=== PATIENT | female | born 1970 | race Caucasian/White ===

== ENCOUNTER 2019-12-13 13:52 | Outpatient (CLI) | payer OTHER, SELFPAY ==
--- NOTE | ~2019-12-13 | MM_ITS ---
EXAMINATION: MM screening shandra BI w neel HISTORY: Screening mammogram TECHNIQUE: Craniocaudal and mediolateral oblique 3-D tomosynthesis images were obtained and synthetic 2-D images were generated. CAD analysis was submitted and interpreted. COMPARISON: Comparison to multiple prior studies sequentially, with oldest reviewed study dated 02/2015. BREAST PARENCHYMAL COMPOSITION: There are scattered areas of fibroglandular density. FINDINGS: There is no evidence of suspicious mass, calcification, or architectural distortion to sugg est malignancy in either breast. There has been no suspicious interval change. IMPRESSION: 1. No mammographic evidence of malignancy. 2. Recommend routine screening mammography in one year. BI-RADS Category 1: Negative Reviewed, dictated and finalized at location A.
== END 2019-12-13 13:53 | disposition home or self-care (01) ==
LOC: ANHIMG 13:55
PROVIDERS: PCP Family Medicine; Visit Provider Obstetrics & Gynecology
DX: Z12.31 Encounter for screening mammogram for malignant neoplasm of breast (principal)
CPT/HCPCS: 77063; 77067

== ENCOUNTER 2020-06-16 08:15 | Outpatient (CLI) | payer OTHER, SELFPAY ==
[2020-06-16 08:34] LABS: Hematocrit 43.9 % (37.0-47.0); Hemoglobin 14.3 g/dL (12.0-15.0); Mean Corpuscular HGB Conc 32.6 g/dl (32-36); Mean Corpuscular Hemoglobin 29.9 pg (26-34); Mean Corpuscular Volume 91.8 fl (80-100); Mean Platelet Volume 9.1 fl (7.4-10.4); Platelet Count Result 383 k/mm3 (150-375); Red Blood Count 4.78 M/mm3 (4.2-5.4); Red Cell Distribution Width 12.8 % (11.5-14.5); White Blood Count 7.4 K/mm3 (4.5-10.0)
[2020-06-16 08:48] LABS: Alanine Aminotransferase 18 U/L (4-35); Alkaline Phosphatase 71 U/L (38-126); Anion Gap 6 mmol/L (8-16); Aspartate Amino Transferase 21 U/L (14-36); Bilirubin,Total 0.6 mg/dL (0.2-1.3); Blood Urea Nitrogen 8 mg/dL (7-17); Calcium 9.3 mg/dL (8.4-10.2); Carbon Dioxide 30 mmol/L (22-30); Chloride 104 mmol/L (98-107); Cholesterol 196 mg/dL (0-200); Estimated Glomerular Filt Rate > 60; Glucose 101 mg/dL (65-105); HDL Direct 42 mg/dL; Potassium 4.1 mmol/L (3.4-5.0); Sodium 140 mmol/L (137-145); Triglycerides 74 mg/dL (<150)
[2020-06-16 08:59] LABS: LDL Cholesterol Direct 138 mg/dL
[2020-06-20 11:47] LABS: Vitamin D 1,25 (OH)2 Total 55 pg/mL (18-72); Vitamin D2 1,25 (OH)2 37 pg/mL; Vitamin D3 1,25 (OH)2 18 pg/mL
== END 2020-06-16 08:16 | disposition home or self-care (01) ==
LOC: ANHLAB 08:16
PROVIDERS: PCP Nurse Practitioner Family; Visit Provider Nurse Practitioner Family
DX: Z13.220 Encounter for screening for lipoid disorders (principal); Z79.899 Other long term (current) drug therapy; E55.9 Vitamin D deficiency, unspecified
CPT/HCPCS: 36415; 80053; 80061; 82652; 85027

== ENCOUNTER 2020-12-15 10:26 | Outpatient (CLI) | payer OTHER, SELFPAY ==
--- NOTE | ~2020-12-15 | MM_ITS ---
EXAMINATION: MM screening shandra BI w neel HISTORY: Screening TECHNIQUE: Craniocaudal and mediolateral oblique 3-D tomosynthesis images were obtained and synthetic 2-D images were generated. CAD analysis was submitted and interpreted. COMPARISON: Comparison to multiple prior studies sequentially, with oldest reviewed study dated 10/06. BREAST PARENCHYMAL COMPOSITION: There are scattered areas of fibroglandular density. FINDINGS: There is no evidence of suspicious mass, calcification, or architectural distortion to sugg est malignancy in either breast. There has been no suspicious interval change. IMPRESSION: 1. No mammographic evidence of malignancy. 2. Recommend routine screening mammography in one year. BI-RADS Category 1: Negative Reviewed, dictated and finalized at location A.
== END 2020-12-15 10:27 | disposition home or self-care (01) ==
LOC: ANHIMG 10:28
PROVIDERS: PCP Nurse Practitioner Family; Visit Provider Nurse Practitioner
DX: Z12.31 Encounter for screening mammogram for malignant neoplasm of breast (principal)
CPT/HCPCS: 77063; 77067

== ENCOUNTER 2021-05-28 17:35 | Outpatient (CLI) | payer OTHER, SELFPAY ==
[2021-05-28 17:56] LABS: Basophils Absolute Auto 0.1 K/mm3 (0.0-0.1); Basophils Percent Auto 1.1 % (0.2-1.2); Eosinophils Percent Auto 0.3 % (0-4.4); Hematocrit 42.4 % (37.0-47.0); Hemoglobin 13.8 g/dL (12.0-15.0); Immature Granulocyte Absolute 0.02 K/mm3 (0.00-0.031); Immature Granulocyte Percent A 0.3 % (0-0.5); Lymphocytes Absolute Auto 2.01 K/mm3 (0.9-3.2); Lymphocytes Percent Auto 26.7 % (18.3-44.2); Mean Corpuscular HGB Conc 32.5 g/dl (32-36); Mean Corpuscular Volume 92.2 fl (80-100); Mean Platelet Volume 9.2 fl (7.4-10.4); Monocytes Absolute Auto 0.6 K/mm3 (0.1-0.6); Monocytes Percent Auto 7.8 % (2.6-8.5); Neutrophils Absolute Auto 4.8 K/mm3 (1.3-6.7); Neutrophils Percent Auto 63.8 % (45.5-73.1); Platelet Count Result 371 k/mm3 (150-375); Red Cell Distribution Width 12.8 % (11.5-14.5); White Blood Count 7.5 K/mm3 (4.5-10.0)
[2021-05-28 18:06] LABS: Alanine Aminotransferase 23 U/L (4-35); Albumin Level 4.5 g/dL (3.5-5.1); Alkaline Phosphatase 77 U/L (38-126); Anion Gap 9 mmol/L (8-16); Aspartate Amino Transferase 24 U/L (14-36); Bilirubin,Total 0.5 mg/dL (0.2-1.3); Blood Urea Nitrogen 7 mg/dL (7-17); Calcium 9.2 mg/dL (8.4-10.2); Carbon Dioxide 25 mmol/L (22-30); Chloride 103 mmol/L (98-107); Cholesterol 218 mg/dL (0-200); Estimated Glomerular Filt Rate > 60; Glucose 85 mg/dL (65-110); HDL Direct 50 mg/dL; Potassium 3.8 mmol/L (3.4-5.0); Sodium 137 mmol/L (137-145); Triglycerides 80 mg/dL (<150)
[2021-05-28 18:17] LABS: LDL Cholesterol Direct 140 mg/dL
[2021-05-28 19:38] LABS: Vitamin D 25 Hydroxy 65.9 ng/mL
== END 2021-05-28 17:36 | disposition home or self-care (01) ==
LOC: ANHLAB 17:38
PROVIDERS: PCP Nurse Practitioner Family; Visit Provider Nurse Practitioner
DX: Z79.899 Other long term (current) drug therapy (principal); Z13.220 Encounter for screening for lipoid disorders; Z13.21 Encounter for screening for nutritional disorder
CPT/HCPCS: 36415; 80053; 80061; 82306; 85025

== ENCOUNTER 2021-12-28 07:55 | Outpatient (CLI) | payer OTHER, SELFPAY ==
--- NOTE | ~2021-12-28 | MM_ITS ---
EXAMINATION: MM screening shandra BI w neel HISTORY: Screening mammogram TECHNIQUE: Craniocaudal and mediolateral oblique 3-D tomosynthesis images were obtained and synthetic 2-D images were generated. CAD analysis was submitted and interpreted. COMPARISON: 12/15/2020, 12/13/2019, 11/06/2018 bilateral screening mammogram examinations BREAST PARENCHYMAL COMPOSITION: The breasts are almost entirely fatty. FINDINGS: There is no evidence of suspicious mass, calcification, or architectural distortion to sugg est malignancy in either breast. There has been no suspicious interval change. IMPRESSION: 1. No mammographic evidence of malignancy. 2. Recommend routine screening mammography in one year. BI-RADS Category 1: Negative Reviewed, dictated and finalized at location A.
== END 2021-12-28 07:56 | disposition home or self-care (01) ==
LOC: ANHIMG 07:56
PROVIDERS: PCP Family Medicine; Visit Provider Nurse Practitioner
DX: Z12.31 Encounter for screening mammogram for malignant neoplasm of breast (principal)
CPT/HCPCS: 77063; 77067

== ENCOUNTER 2022-01-01 14:23 | Outpatient (CLI) | payer OTHER, SELFPAY ==
--- NOTE | ~2022-01-01 | DEXA_ITS ---
Bone Density Report Name: BRUNILDA HELTON Age: 51 Sex: Female Ethnicity: White Date of : 1970 Indication: screening for osteoporosis Referring Provider: CAMILLE, DEV Study: Bone densitometry was performed. Exam Date: January 01, 2022 Accession number: [id number] Bone Density: Region BMD T-score Z-score Classification AP Spine(L1-L4) 1.216 1.5 2.2 Normal Femoral Neck (Left) 0.841 -0.1 0.6 Normal Total Hip (Left) 0.925 -0.1 0.3 Normal Femoral Neck (Right) 0.766 -0.7 -0.1 Normal Total Hip (Right) 0.920 -0.2 0.3 Normal Total Hip Mean 0.923 -0.2 0.3 Normal World Health Organization criteria for BMD impression classify patients as: Normal (T-score at or above -1.0), Osteopenia (T-score between -1.0 and -2.5), or Osteoporosis (T-score at or below -2.5). 10-year Fracture Risk: FRAX not reported because: Premenopausal woman All T-scores for Spine Total, Hip Total, Femoral Neck at or above -1.0 Previous Exams: Region Exam Age BMD T-score BMD Change BMD Change Date g/cm2 vs Baseline vs Previous AP Spine (L1-L4) 01/01/2022 51 1.216 1.5 0.103 (9.3%)* 0.103 (9.3%)* 10/31/2017 47 1.113 0.6 Total Hip(Left) 01/01/2022 51 0.925 -0.1 -0.031 (-3.2%) -0.031 (-3.2%) 10/31/2017 47 0.956 0.1 Total Hip(Right) 01/01/2022 51 0.920 -0.2 -0.030 (-3.1%) -0.030 (-3.1%) 10/31/2017 47 0.950 0.1 *Denotes significance at 95% confidence level, LSC for AP Spine = 0.022 g/cm2, LSC for Total Hip = 0.027 g/cm2 Clinical Information Provided by Patient: Has used the following medications: Vitamin D, Calcium Patient maximum height was 63 No regular weight bearing exercise Drinks caffeinated beverages Onset of menses at age 14 Premenopausal Number of children 0 Impression: The patient's bone mass is within expected range for age, gender and ethnicity. The BMD for the Total Hip(Left) decreased, changing by -3.2% since the last DXA exam. The BMD for the Total Hip(Right) decreased, changing by -3.1% since the last DXA exam. Discussion: BONE DENSITY IS WITHIN EXPECTED LIMITS FOR AGE, SEX AND RACE. Bone density is within expected limits for age, sex and race at all sites measured. The patient should follow a healthful lifestyle (good nutrition with adequate calcium and vitamin D, and appropriate weight-bearing exercise). Follow-Up: Consider repeating this study in 3 to 4 years to reassess this patient's status, or sooner if
== END 2022-01-01 14:24 | disposition home or self-care (01) ==
LOC: ANHIMG 14:33
PROVIDERS: PCP Nurse Practitioner Family; Visit Provider Nurse Practitioner
DX: Z13.820 Encounter for screening for osteoporosis (principal)
CPT/HCPCS: 77080

== ENCOUNTER 2022-04-02 18:43 | Emergency (ER) | payer OTHER, SELFPAY ==
[2022-04-02 18:53] VITALS: BP 180/100; PULSE 117; RESP 16; TEMP 36.8; O2SAT 99
--- NOTE | 2022-04-02 19:06 | ED.SKABFB ---
HPI - Skin/Abscess/Foreign Bdy General Chief complaint: Skin/Abscess/Foreign Body Stated complaint: right foot infected big toe Time Seen by Provider: 04/02/22 19:06 Source: patient, RN notes reviewed and old records reviewed Mode of arrival: ambulatory Limitations: no limitations History of Present Illness HPI narrative: 51-year-old female presents to [facility] with complaints of pain to her right great toe with some redness for the past 3 days.Patient states she trimmed her toenails and she trimmed her right great toe too short and has noticed some purulent drainage to the inner aspect of nail with soreness. Patient reports that she has been cleansing toe with peroxide and has been cushioning with bandage to tolerate wearing shoe. Patient denies any fevers, chills or sweats, tetanus is not up to date. MD complaint: other (skin infection right great toe) Onset (ago): day(s) (3) Tetanus up to date: no Severity scale (1-10): 3 Quality: aching Treatments prior to arrival: bandages and other (Cleansed with peroxide) Related Data Home Medications Medication Instructions Recorded Confirmed ergocalciferol (vitamin D2) 1,250 50,000 unit PO WEEKLY 08/11/19 06/14/21 mcg (50,000 unit) capsule (Vitamin D2) medroxyprogesterone 150 mg/mL 150 mg IM [id number] 08/11/19 06/14/21 intramuscular suspension (Depo-Provera) calcium carbonate 600 mg calcium 600 mg PO BID 11/07/19 06/14/21 (1,500 mg) tablet omeprazole magnesium 20 mg 20 mg PO DAILY 12/08/19 06/14/21 tablet,delayed release (Prilosec OTC) Allergies Allergy/AdvReac Type Severity Reaction Status Date / Time codeine Allergy Unknown Nausea and Verified 06/14/21 10:50 Vomiting hydrocodone Allergy Unknown Nausea and Verified 06/14/21 10:50 Vomiting morphine Allergy Unknown Redness of Verified 06/14/21 10:50 Skin nitrofurantoin Allergy Unknown Dyspnea / Verified 06/14/21 10:50 SOB Sulfa (Sulfonamide Allergy Unknown RASH Verified 06/14/21 10:50 Antibiotics) sulfanilamide Allergy Unknown Nausea and Verified 06/14/21 10:50 Vomiting NAIL ALBANIAN REMOVER Allergy Severe ITCHING Uncoded 06/14/21 10:50 AND RASH CONFIRMED 02/21/08 NITROFURANTOIN MACROCRYSTAL Allergy Severe SOB, Uncoded 06/14/21 10:50 VOMITING Review of Systems Review of Systems: CONSTITUTIONAL: Denies fever, chills, or sweats. EYES: Denies visual changes, redness, or discharge. ENT: Denies rhinorrhea, congestion, sore throat, or otalgia. CARDIOVASCULAR: Denies chest pain, palpitations, or edema. RESPIRATORY: Denies cough or dyspnea. GASTROINTESTINAL: Denies abdominal pain, nausea, vomiting, or diarrhea. GENITOURINARY: Denies dysuria or hematuria. SKIN: Denies rash or itching. MUSCULOSKELETAL: Denies back pain,positive for right geat toe pain with redness, or myalgia. NEUROLOGIC: Denies headache, numbness, or weakness. PSYCHIATRIC: positive for history of anxiety or depression. All systems reviewed & are unremarkable except as noted in HPI and below PMFSH Past Medical History Medical History (Updated 04/03/22 @ 21:24 by Cintia Cardona NP) Anxiety Bronchitis Depression, major, recurrent, in partial remission GERD (gastroesophageal reflux disease) Scalp cyst Strain of right elbow Unspecified asthma, uncomplicated Vitamin D deficiency Surgical History Surgical History (Updated 04/03/22 @ 21:24 by Cintia Cardona NP) Hx of abdominoplasty [place] teeth extracted Family History Family History (Updated 04/03/22 @ 21:26 by Cnitia Cardona NP) Grandparent Heart disease Cerebrovascular accident Cancer Mother Hypertension Arthritis Sibling Hypertension Social History Social History (Updated 04/03/22 @ 21:19 by Cintia Cardona NP) Smoking status: Former smoker Second hand tobacco smoke exposure: No Smoking end date: 08/17/13 Alcohol intake: current Substance use: never Gender identity (if verbalized by the patient
[2022-04-02] MEDS: TETANUS,DIPHTHERIA,AC PERTUSSIS ADULT (0.5 ML) BOOSTRIX IM (19:28)
== END 2022-04-02 19:36 | disposition home or self-care (01) ==
PROVIDERS: Emergency Provider Registered Nurse; PCP Nurse Practitioner Family
DX: L02.611 Cutaneous abscess of right foot (principal); Z23 Encounter for immunization; Z87.891 Personal history of nicotine dependence; K21.9 Gastro-esophageal reflux disease without esophagitis; E55.9 Vitamin D deficiency, unspecified
CPT/HCPCS: 90471; 90715; 99213; G0463

== ENCOUNTER 2022-07-02 16:45 | Outpatient (CLI) | payer OTHER, SELFPAY ==
[2022-07-02 17:57] LABS: Vitamin D 25 Hydroxy 56.5 ng/mL
== END 2022-07-02 16:46 | disposition home or self-care (01) ==
PROVIDERS: PCP Nurse Practitioner Family; Visit Provider Obstetrics & Gynecology Gynecology
DX: E55.9 Vitamin D deficiency, unspecified (principal)
CPT/HCPCS: 36415; 82306

== ENCOUNTER 2022-11-30 11:16 | Emergency (ER) | payer OTHER, SELFPAY ==
[2022-11-30 11:25] VITALS: BP 90/78; PULSE 74; RESP 16; TEMP 36.4; O2SAT 100
--- NOTE | 2022-11-30 11:37 | ED.FEMALEGU ---
HPI - Female Genitourinary General Chief complaint: Urogenital-Female Stated complaint: uti Time Seen by Provider: 11/30/22 11:37 Source: patient Mode of arrival: ambulatory Limitations: no limitations History of Present Illness HPI Narrative: [age] year old female presents with complaint of urinary urgency, change in stream. Reports difficulty starting to void when she needs to go. No CVA tenderness. denies N/v/d. All systems reviewed and negative except as noted above. Related Data Home Medications Medication Instructions Recorded Confirmed ergocalciferol (vitamin D2) 1,250 50,000 unit PO WEEKLY 08/11/19 11/25/22 mcg (50,000 unit) capsule (Vitamin D2) medroxyprogesterone 150 mg/mL 150 mg IM [id number] 08/11/19 11/25/22 intramuscular suspension (Depo-Provera) calcium carbonate 600 mg calcium 600 mg PO BID 11/07/19 11/25/22 (1,500 mg) tablet Allergies Allergy/AdvReac Type Severity Reaction Status Date / Time codeine Allergy Unknown Nausea and Verified 11/25/22 13:20 Vomiting hydrocodone Allergy Unknown Nausea and Verified 11/25/22 13:20 Vomiting morphine Allergy Unknown Redness of Verified 11/25/22 13:20 Skin nitrofurantoin Allergy Unknown Dyspnea / Verified 11/25/22 13:20 SOB Sulfa (Sulfonamide Allergy Unknown RASH Verified 11/25/22 13:20 Antibiotics) sulfanilamide Allergy Unknown Nausea and Verified 11/25/22 13:20 Vomiting NAIL BRITISH REMOVER Allergy Severe ITCHING Uncoded 11/25/22 13:20 AND RASH CONFIRMED 02/21/08 NITROFURANTOIN MACROCRYSTAL Allergy Severe SOB, Uncoded 11/25/22 13:20 VOMITING Review of Systems Review of Systems: CONSTITUTIONAL: Denies fever, chills, or sweats. EYES: Denies visual changes, redness, or discharge. ENT: Denies rhinorrhea, congestion, sore throat, or otalgia. CARDIOVASCULAR: Denies chest pain, palpitations, or edema. RESPIRATORY: Denies cough or dyspnea. GASTROINTESTINAL: Denies abdominal pain, nausea, vomiting, or diarrhea. GENITOURINARY: Reports urgency, difficulty starting stream. denies dysuria, hematuria. SKIN: Denies rash or itching. MUSCULOSKELETAL: Denies back pain, joint pain, or myalgia. NEUROLOGIC: Denies headache, numbness, or weakness. PSYCHIATRIC: Denies anxiety or depression. All other systems reviewed are negative, except as documented in HPI. [facility] Past Medical History Medical History (Updated 11/30/22 @ 11:49 by Elisa Butler NP) Anxiety Bronchitis Depression, major, recurrent, in partial remission GERD (gastroesophageal reflux disease) Scalp cyst Strain of right elbow Unspecified asthma, uncomplicated Vitamin D deficiency Surgical History Surgical History Hx of abdominoplasty [place] teeth extracted Family History Family History Grandparent Heart disease Cerebrovascular accident Cancer Mother Hypertension Arthritis Sibling Hypertension Social History Social History (Updated 11/25/22 @ 13:21 by Shanon Garcia MA) Smoking status: Former smoker Second hand tobacco smoke exposure: No Smoking end date: 08/17/13 Alcohol intake: current Substance use: never Lack of Transportation: No Lack of Food: Never True Current Housing: I Have Housing Concerned About Future Housing: No Difficulty Paying Gas/Electric Bills: No Difficulty Paying for Meds: No Currently Unemployed: No Education: High School Diploma/GED Difficulty w/ Childcare or Family Care: No Living arrangements: with family Occupation/Education: occupation Gender identity (if verbalized by the patient): Female Agree to blood products: Yes Comments At time of signature, agree with nursing past medical, surgical, social and family history. There is no relevant family history pertinent to the presenting complaint. Exam Narrative: GENERAL: This is a well-nourished, well
== END 2022-11-30 11:53 | disposition home or self-care (01) ==
PROVIDERS: Emergency Provider Nurse Practitioner Family; PCP Nurse Practitioner Family
DX: N39.0 Urinary tract infection, site not specified (principal); Z87.891 Personal history of nicotine dependence; K21.9 Gastro-esophageal reflux disease without esophagitis; E55.9 Vitamin D deficiency, unspecified
CPT/HCPCS: 81003; 87077; 87086; 87186; 99213; G0463

== ENCOUNTER 2023-01-10 07:16 | Outpatient (CLI) | payer OTHER, SELFPAY ==
--- NOTE | ~2023-01-10 | MM_ITS ---
EXAMINATION: MM screening shandra BI w neel HISTORY: Screening mammogram TECHNIQUE: Craniocaudal and mediolateral oblique 3-D tomosynthesis images were obtained and synthetic 2-D images were generated. CAD analysis was submitted and interpreted. COMPARISON: 12/28/2021, 12/15/2020, 12/13/2019 bilateral screening mammogram examinations BREAST PARENCHYMAL COMPOSITION: The breasts are almost entirely fatty. FINDINGS: There is no evidence of suspicious mass, calcification, or architectural distortion to sugg est malignancy in either breast. There has been no suspicious interval change. IMPRESSION: 1. No mammographic evidence of malignancy. 2. Recommend routine screening mammography in one year. BI-RADS Category 1: Negative Reviewed, dictated and finalized at location A.
== END 2023-01-10 07:17 | disposition home or self-care (01) ==
PROVIDERS: PCP Nurse Practitioner Family; Visit Provider Nurse Practitioner
DX: Z12.31 Encounter for screening mammogram for malignant neoplasm of breast (principal)
CPT/HCPCS: 77063; 77067

== ENCOUNTER 2023-01-23 21:26 | Emergency (ER) | payer OTHER, SELFPAY ==
--- NOTE | ~2023-01-23 | XR_ITS ---
EXAMINATION: XR chest 2V DATE: 01/23/2023 22:37 INDICATION: Shortness of breath TECHNIQUE: PA and lateral views of the chest are obtained. COMPARISON: 12/15/2009 FINDINGS: The lungs are free of acute opacities. No pleural effusion or pneumothorax. The cardiomedia stinal silhouette is normal. There is mild thoracic spondylosis. IMPRESSION: 1. No acute cardiopulmonary abnormality. Reviewed, dictated and finalized at location F.
[2023-01-23 22:21] VITALS: BP 144/87; PULSE 88; RESP 20; TEMP 36.3; O2SAT 100
--- NOTE | 2023-01-23 22:27 | ECG_ITS ---
Measurements Intervals Dorris Rate: 73 P: 55 PA: 159 QRS: 17 QRSD: 101 T: 23 QT: 374 QTc: 414 Interpretive Statements SINUS RHYTHM LOW QRS VOLTAGE IN PRECORDIAL LEADS [QRS DEFLECTION < 1.0 mV IN CHEST LEADS] NO PREVIOUS ECG AVAILABLE FOR COMPARISON Electronically Signed On 01-24-2023 9:00:14 CDT by Lilian Simeon M.D.
[2023-01-23 22:45] VITALS: PULSE 70; O2SAT 100
[2023-01-23 22:52] LABS: Basophils Absolute Auto 0.1 K/mm3 (0.0-0.1); Basophils Percent Auto 0.7 % (0.2-1.2); Eosinophils Percent Auto 0.2 % (0-4.4); Hemoglobin 13.2 g/dL (12.0-15.0); Immature Granulocyte Absolute 0.03 K/mm3 (0.00-0.031); Immature Granulocyte Percent A 0.3 % (0-0.5); Lymphocytes Absolute Auto 2.18 K/mm3 (0.9-3.2); Lymphocytes Percent Auto 20.5 % (18.3-44.2); Mean Corpuscular Hemoglobin 30.1 pg (26-34); Mean Corpuscular Volume 91.1 fl (80-100); Monocytes Absolute Auto 0.9 K/mm3 (0.1-0.6); Monocytes Percent Auto 8.3 % (2.6-8.5); Neutrophils Absolute Auto 7.5 K/mm3 (1.3-6.7); Platelet Count Result 438 k/mm3 (150-375); Red Blood Count 4.39 M/mm3 (4.2-5.4); Red Cell Distribution Width 12.6 % (11.5-14.5); White Blood Count 10.7 K/mm3 (4.5-10.0)
[2023-01-23 23:03] LABS: Alanine Aminotransferase 17 U/L (6-35); Albumin Level 4.3 g/dL (3.5-5.1); Alkaline Phosphatase 71 U/L (38-126); Anion Gap 8 mmol/L (8-16); Aspartate Amino Transferase 20 U/L (14-36); Bilirubin,Total 0.5 mg/dL (0.2-1.3); Blood Urea Nitrogen 12 mg/dL (7-17); Carbon Dioxide 27 mmol/L (22-30); Chloride 97 mmol/L (98-107); Estimated CRCL calculation 67 ml/min; Estimated Glomerular Filt Rate 53; Glucose 100 mg/dL (65-110); Potassium 3.6 mmol/L (3.4-5.0); Sodium 132 mmol/L (137-145)
[2023-01-24] VITALS (10 sets, daily range): BP systolic 115–130; BP diastolic 73–95; PULSE 71–86; RESP 16–23; O2SAT 97–100
[2023-01-24] MEDS: SODIUM CHLORIDE 0.9% IV 1,000 ML 999 ML IV CONT (00:42)
[2023-01-24 01:00] LABS: NT Pro B Type Natriuretic Pept 36 pg/mL (19.9-100); Troponin I < 0.012 ng/mL (0.000-0.034)
[2023-01-24 01:01] LABS: Appearance Urine Cloudy (Clear); Bacteria Urine 4+ /hpf; Bilirubin Urine Negative (Negative); Blood Urine Trace (Negative); Color Urine Yellow (Yellow); Glucose Urine UA Negative (Negative); Ketones Urine Trace mg/dL (Negative); Leukocyte Esterase Ur 2+ LEU/UL (Negative); Nitrate Urine Negative (Negative); Non Pathogenic Casts 0-2; Protein Urine Negative (Negative); RBC Urine 0-2 /hpf (0-2); Specific Grav Ur 1.007 (1.001-1.035); Squamous Epithelial Cell Urine Few /hpf (Few); Urobilinogen Urine 0.2 mg/dL (<2.0); WBC Urine 51-100 /hpf
[2023-01-24 01:17] LABS: D Dimer < 0.27 ug/mL (<0.48)
[2023-01-24 01:24] LABS: Add Urine Microscopic? YES
--- NOTE | 2023-01-24 02:18 | ED.GENADULT ---
HPI - General Adult General Chief complaint: Shortness of Breath/Dyspnea Stated complaint: shortness of breath Time Seen by Provider: 01/24/23 00:10 History of Present Illness HPI narrative: Patient is a 52-year-old female who presents the emergency department with chief complaint of shortness of breath. Patient reports that she got overheated on Thursday from working out in the yard and since then she has been having episodes where she feels as though she gets somewhat short of breath she also has reported feeling as though her heart is been beating fast at times. Patient denies chest pain denies exertional symptoms. Patient reports that she had no diarrhea no fever does report that she has had some chills. Related Data Home Medications Medication Instructions Recorded Confirmed ergocalciferol (vitamin D2) 1,250 50,000 unit PO WEEKLY 08/11/19 11/30/22 mcg (50,000 unit) capsule (Vitamin D2) medroxyprogesterone 150 mg/mL 150 mg IM [id number] 08/11/19 11/30/22 intramuscular suspension (Depo-Provera) calcium carbonate 600 mg calcium 600 mg PO BID 11/07/19 11/30/22 (1,500 mg) tablet Allergies Allergy/AdvReac Type Severity Reaction Status Date / Time codeine Allergy Unknown Nausea and Verified 01/23/23 22:30 Vomiting hydrocodone Allergy Unknown Nausea and Verified 01/23/23 22:30 Vomiting morphine Allergy Unknown Redness of Verified 01/23/23 22:30 Skin nitrofurantoin Allergy Unknown Dyspnea / Verified 01/23/23 22:30 SOB Sulfa (Sulfonamide Allergy Unknown RASH Verified 01/23/23 22:30 Antibiotics) sulfanilamide Allergy Unknown Nausea and Verified 01/23/23 22:30 Vomiting NAIL SAMI REMOVER Allergy Severe ITCHING Uncoded 01/23/23 22:30 AND RASH CONFIRMED 02/21/08 NITROFURANTOIN MACROCRYSTAL Allergy Severe SOB, Uncoded 01/23/23 22:30 VOMITING Review of Systems Review of Systems: A 10 system review of systems was completed on the patient and is negative except for what is stated in the HPI. Nursing and ancillary documentation was reviewed. [facility] Past Medical History Medical History Anxiety Bronchitis Depression, major, recurrent, in partial remission GERD (gastroesophageal reflux disease) Scalp cyst Strain of right elbow Unspecified asthma, uncomplicated Vitamin D deficiency Surgical History Surgical History Hx of abdominoplasty [place] teeth extracted Family History Family History Grandparent Heart disease Cerebrovascular accident Cancer Mother Hypertension Arthritis Sibling Hypertension Social History Social History Smoking status: Former smoker Second hand tobacco smoke exposure: No Smoking end date: 08/17/13 Alcohol intake: current Substance use: never Lack of Transportation: No Lack of Food: Never True Current Housing: I Have Housing Concerned About Future Housing: No Difficulty Paying Gas/Electric Bills: No Difficulty Paying for Meds: No Currently Unemployed: No Education: High School Diploma/GED Difficulty w/ Childcare or Family Care: No Living arrangements: with family Occupation/Education: occupation Gender identity (if verbalized by the patient): Female Agree to blood products: Yes Exam Narrative: GENERAL: Well-appearing, well-nourished, and in no acute distress. HEAD: Normocephalic, atraumatic. EYES: PERRLA and EOMI. ENT: Nares clear, no rhinorrhea or epistaxis. Mucous membranes moist. NECK: Supple. CHEST: Clear to auscultation. No respiratory distress. HEART: Regular rate and rhythm. No murmur heard. Normal peripheral pulses. ABDOMEN: Soft, nontender, nondistended, normal active bowel sounds. EXTREMITIES: Normal range of motion.
[2023-01-24] MEDS: CEPHALEXIN 500 MG CAPSULE PO (02:27)
== END 2023-01-24 02:56 | disposition home or self-care (01) ==
PROVIDERS: Emergency Provider Emergency Medicine; PCP Nurse Practitioner Family
DX: N30.00 Acute cystitis without hematuria (principal); R06.00 Dyspnea, unspecified; E86.0 Dehydration; F41.9 Anxiety disorder, unspecified; F32.A Depression, unspecified; K21.9 Gastro-esophageal reflux disease without esophagitis
CPT/HCPCS: 36415; 71046; 80053; 81001; 83880; 84484; 85025; 85380; 87077; 87086; 87186; 93005; 96360; 99284; A9270; J7030

== ENCOUNTER 2023-02-04 17:27 | Emergency (ER) | payer OTHER, SELFPAY ==
--- NOTE | 2023-02-04 17:32 | ED.FEMALEGU ---
HPI - Female Genitourinary General Chief complaint: Urogenital-Female Stated complaint: UTI SYMPTOMS Time Seen by Provider: 02/04/23 17:53 Source: patient and RN notes reviewed Mode of arrival: ambulatory Limitations: no limitations History of Present Illness HPI Narrative: 52-year-old female presents with concern for dysuria, feeling of not emptying her bladder. Reports she got chills on the way here. She reports she was treated for urinary tract infection 11 days ago with cephalexin. Reports she feels like her symptoms had improved. She is concerned the infection did not completely clear. She denies fever, aches, sweats, nausea, vomiting. MD elicited complaint: dysuria Related Data Home Medications Medication Instructions Recorded Confirmed ergocalciferol (vitamin D2) 1,250 50,000 unit PO WEEKLY 08/11/19 02/04/23 mcg (50,000 unit) capsule (Vitamin D2) medroxyprogesterone 150 mg/mL 150 mg IM [id number] 08/11/19 02/04/23 intramuscular suspension (Depo-Provera) Allergies Allergy/AdvReac Type Severity Reaction Status Date / Time codeine Allergy Unknown Nausea and Verified 01/23/23 22:30 Vomiting hydrocodone Allergy Unknown Nausea and Verified 01/23/23 22:30 Vomiting morphine Allergy Unknown Redness of Verified 01/23/23 22:30 Skin nitrofurantoin Allergy Unknown Dyspnea / Verified 01/23/23 22:30 SOB Sulfa (Sulfonamide Allergy Unknown RASH Verified 01/23/23 22:30 Antibiotics) sulfanilamide Allergy Unknown Nausea and Verified 01/23/23 22:30 Vomiting NAIL WOLOF REMOVER Allergy Severe ITCHING Uncoded 01/23/23 22:30 AND RASH CONFIRMED 02/21/08 NITROFURANTOIN MACROCRYSTAL Allergy Severe SOB, Uncoded 01/23/23 22:30 VOMITING Review of Systems Review of Systems: CONSTITUTIONAL: Denies malaise, sweats, or fever. Reports chills CARDIOVASCULAR: Denies chest pain, palpitations, or edema. RESPIRATORY: Denies cough or dyspnea. GASTROINTESTINAL: Denies abdominal pain, nausea, vomiting, diarrhea GENITOURINARY: Reports dysuria, not pulling emptying her bladder. Denies frequency, urgency, suprapubic pressure. Denies flank pain or hematuria. SKIN: Denies rash or itching. MUSCULOSKELETAL: Denies back pain or myalgia. All systems reviewed & are unremarkable except as noted in HPI and below PMFSH Past Medical History Medical History Anxiety Bronchitis Depression, major, recurrent, in partial remission GERD (gastroesophageal reflux disease) Scalp cyst Strain of right elbow Unspecified asthma, uncomplicated Vitamin D deficiency Surgical History Surgical History Hx of abdominoplasty [place] teeth extracted Family History Family History Grandparent Heart disease Cerebrovascular accident Cancer Mother Hypertension Arthritis Sibling Hypertension Social History Social History Smoking status: Former smoker Second hand tobacco smoke exposure: No Smoking end date: 08/17/13 Alcohol intake: current Substance use: never Lack of Transportation: No Lack of Food: Never True Current Housing: I Have Housing Concerned About Future Housing: No Difficulty Paying Gas/Electric Bills: No Difficulty Paying for Meds: No Currently Unemployed: No Education: High School Diploma/GED Difficulty w/ Childcare or Family Care: No Living arrangements: with family Occupation/Education: occupation Gender identity (if verbalized by the patient): Female Agree to blood products: Yes Comments At time of signature, agree with nursing past medical, surgical, social and family history. There is no relevant family history pertinent to the presenting complaint Exam Narrative: GENERAL: Well-appearing, we
[2023-02-04 17:39] VITALS: BP 130/99; PULSE 92; RESP 16; TEMP 36.1; O2SAT 100
== END 2023-02-04 18:04 | disposition home or self-care (01) ==
PROVIDERS: Emergency Provider Nurse Practitioner; PCP Nurse Practitioner Family
DX: R30.0 Dysuria (principal); Z87.891 Personal history of nicotine dependence; K21.9 Gastro-esophageal reflux disease without esophagitis; J45.909 Unspecified asthma, uncomplicated; E55.9 Vitamin D deficiency, unspecified; F41.9 Anxiety disorder, unspecified; F32.A Depression, unspecified
CPT/HCPCS: 81003; 87077; 87086; 87186; 99213; G0463

== ENCOUNTER 2023-02-10 17:28 | Emergency (ER) | payer OTHER, SELFPAY ==
[2023-02-10 17:39] VITALS: BP 145/97; PULSE 81; RESP 16; TEMP 36.6; O2SAT 100
[2023-02-10 18:33] LABS: Alanine Aminotransferase 20 U/L (6-35); Albumin Level 4.6 g/dL (3.5-5.1); Alkaline Phosphatase 70 U/L (38-126); Anion Gap 10 mmol/L (8-16); Aspartate Amino Transferase 23 U/L (14-36); Bilirubin,Total 0.6 mg/dL (0.2-1.3); Blood Urea Nitrogen 13 mg/dL (7-17); Calcium 9.2 mg/dL (8.4-10.2); Carbon Dioxide 25 mmol/L (22-30); Chloride 96 mmol/L (98-107); Estimated CRCL calculation 73 ml/min; Estimated Glomerular Filt Rate 59; Glucose 88 mg/dL (65-110); Potassium 3.7 mmol/L (3.4-5.0); Sodium 131 mmol/L (137-145)
[2023-02-10 18:53] LABS: Basophils Absolute Auto 0.1 K/mm3 (0.0-0.1); Basophils Percent Auto 0.5 % (0.2-1.2); Eosinophils Percent Auto 0.2 % (0-4.4); Hematocrit 40.5 % (37.0-47.0); Hemoglobin 13.5 g/dL (12.0-15.0); Immature Granulocyte Absolute 0.03 K/mm3 (0.00-0.031); Immature Granulocyte Percent A 0.3 % (0-0.5); Lymphocytes Absolute Auto 1.77 K/mm3 (0.9-3.2); Lymphocytes Percent Auto 17.8 % (18.3-44.2); Mean Corpuscular HGB Conc 33.3 g/dl (32-36); Mean Corpuscular Hemoglobin 29.9 pg (26-34); Mean Corpuscular Volume 89.8 fl (80-100); Mean Platelet Volume 8.6 fl (7.4-10.4); Monocytes Absolute Auto 0.9 K/mm3 (0.1-0.6); Monocytes Percent Auto 8.5 % (2.6-8.5); Neutrophils Absolute Auto 7.3 K/mm3 (1.3-6.7); Neutrophils Percent Auto 72.7 % (45.5-73.1); Platelet Count Result 440 k/mm3 (150-375); Red Blood Count 4.51 M/mm3 (4.2-5.4); Red Cell Distribution Width 12.6 % (11.5-14.5)
--- NOTE | 2023-02-10 20:54 | ED.ANXIETY ---
HPI - Anxiety General Chief Complaint: Anxiety <Kourtney Fung PA-C - Last Filed: 02/10/23 23:32> Stated Complaint: ANXIETY <Kourtney Fung PA-C - Last Filed: 02/10/23 23:32> Time Seen by Provider: 02/10/23 20:33 <Kourtney Fung PA-C - Last Filed: 02/10/23 23:32> History of Present Illness HPI narrative: 52-year-old female reports for evaluation for anxiety x2 weeks, worsening this afternoon. She is treated for anxiety by her PCP with daily buspirone and bupropion for multiple years. States the past few weeks, she has been treated for 3 UTIs with different medications. She was seen in urgent care on 11/30, diagnosed with a UTI and started on amoxicillin. She was then seen in the emergency department on 01/24 for dehydration, diagnosed with a UTI and started on Keflex. Patient was then seen on 02/04 in urgent care for persistent dysuria, treated with Augmentin. She received a phone call 2 days ago from urgent care advising her to discontinue the Augmentin and to start Cipro due to culture results. 3 days of Cipro were sent to the pharmacy. She has 1 dose left. Patient states she called her PCP today to discuss the recurrent UTIs, at that time her PCP advised her to follow-up with urology which caused the patient to become extremely anxious. Patient states her father last year of bladder cancer and being told to see urology increased her anxiety. Her symptoms of anxiety include nervousness and feeling jittery. Denies SI/HI. She denies chest pain, shortness of breath, palpitations, abdominal pain, nausea or vomiting. Denies dysuria, hematuria, urinary frequency and urgency, low back pain. She does report 1-2 episodes of diarrhea daily since she has been taking antibiotics. She is requesting a UA to see if her UTI is gone. <Kourtney Fung PA-C - Last Filed: 02/10/23 23:32> Related Data Home Medications: Home Medications Medication Instructions Recorded Confirmed ergocalciferol (vitamin D2) 1,250 50,000 unit PO WEEKLY 08/11/19 02/04/23 mcg (50,000 unit) capsule (Vitamin D2) medroxyprogesterone 150 mg/mL 150 mg IM [id number] 08/11/19 02/04/23 intramuscular suspension (Depo-Provera) <Kourtney Fung PA-C - Last Filed: 02/10/23 23:32> Allergies/Adverse Reactions: Allergies Allergy/AdvReac Type Severity Reaction Status Date / Time codeine Allergy Unknown Nausea and Verified 01/23/23 22:30 Vomiting hydrocodone Allergy Unknown Nausea and Verified 01/23/23 22:30 Vomiting morphine Allergy Unknown Redness of Verified 01/23/23 22:30 Skin nitrofurantoin Allergy Unknown Dyspnea / Verified 01/23/23 22:30 SOB Sulfa (Sulfonamide Allergy Unknown RASH Verified 01/23/23 22:30 Antibiotics) sulfanilamide Allergy Unknown Nausea and Verified 01/23/23 22:30 Vomiting NAIL TAMAZ[place] REMOVER Allergy Severe ITCHING Uncoded 01/23/23 22:30 AND RASH CONFIRMED 02/21/08 NITROFURANTOIN MACROCRYSTAL Allergy Severe SOB, Uncoded 01/23/23 22:30 VOMITING <Kourtney Fung PA-C - Last Filed: 02/10/23 23:32> Review of Systems Review of Systems: CONSTITUTIONAL: Denies fever EYES: Denies visual changes, redness, or discharge. ENT: Denies rhinorrhea, congestion, sore throat, or otalgia. CARDIOVASCULAR: Denies chest pain, palpitations, or edema. RESPIRATORY: Denies cough or dyspnea. GASTROINTESTINAL: Denies abdominal pain, nausea, vomiting, or diarrhea. GENITOURINARY: See HPI SKIN: Denies rash or itching. MUSCULOSKELETAL: Denies back pain, joint pain, or myalgia. NEUROLOGIC: Denies headache, numbness, dizziness, or weakness. PSYCHIATRIC:See HPI <Kourtney Fung PA-C - Last Filed: 02/10/23 23:32> PMF Past Medical History Medical History: Medical History Anxiety Bronchitis Depression, major, recurrent, in partial remission GERD (gastroesophageal reflux disease) Scalp cyst
[2023-02-10 21:32] LABS: Appearance Urine Clear (Clear); Bacteria Urine None Seen /hpf; Bilirubin Urine Negative (Negative); Blood Urine 3+ (Negative); Color Urine Yellow (Yellow); Glucose Urine UA Negative (Negative); Ketones Urine 1+ mg/dL (Negative); Leukocyte Esterase Ur 1+ LEU/UL (Negative); Nitrate Urine Negative (Negative); Non Pathogenic Casts 0-2; Protein Urine Negative (Negative); RBC Urine >100 /hpf (0-2); Specific Grav Ur 1.016 (1.001-1.035); Squamous Epithelial Cell Urine Occasional /hpf (Few); Urobilinogen Urine 0.2 mg/dL (<2.0); pH Urine 5.5 (5.0-9.0)
[2023-02-10 21:33] LABS: Add Urine Microscopic? YES
[2023-02-10] MEDS: LORazepam INJ (*CRX) 2 MG/ML VIAL 0.5 MG IV PUSH (21:33)
[2023-02-10] MEDS: SODIUM CHLORIDE 0.9% IV 1,000 ML 999 ML IV CONT (21:34)
[2023-02-10 22:13] LABS: Toxigenic C. Diff NEGATIVE (NEGATIVE)
[2023-02-10 23:30] VITALS: BP 133/76; PULSE 88; RESP 17; O2SAT 96
== END 2023-02-10 23:30 | disposition home or self-care (01) ==
PROVIDERS: Emergency Medicine; Emergency Provider Physician Assistant; PCP Nurse Practitioner Family
DX: F41.9 Anxiety disorder, unspecified (principal); N39.0 Urinary tract infection, site not specified; Z87.891 Personal history of nicotine dependence
CPT/HCPCS: 36415; 80053; 81001; 85025; 87086; 87493; 96361; 96365; 96375; 99284; J0696; J2060; J7030

== ENCOUNTER 2023-02-16 16:03 | Outpatient (CLI) | payer OTHER, SELFPAY | END 2023-02-16 16:04 | disposition home or self-care (01) | PROVIDERS: PCP Family Medicine; Visit Provider Family Medicine | DX: N39.0 Urinary tract infection, site not specified (principal) | CPT/HCPCS: 87086 ==

== ENCOUNTER 2023-04-28 22:34 | Emergency (ER) | payer OTHER, SELFPAY ==
--- NOTE | ~2023-04-28 | XR_ITS ---
EXAMINATION: XR chest 2V Exam Date/Time: 04/28/2023 23:05 CDT HISTORY: chest tightness-possible allergic reaction to new pain meds Comparison: 01/23/2023. RESULT: Lines, tubes, and devices: None. Lungs and pleura: Clear. Cardiomediastinal silhouette: Stable. Other: No acute osseous or upper abdominal finding. IMPRESSION: No acute cardiopulmonary process. Reviewed, dictated and finalized at location K.
[2023-04-28 22:35] VITALS: BP 138/84; PULSE 90; RESP 17; TEMP 36.6; O2SAT 100
--- NOTE | 2023-04-28 22:35 | ECG_ITS ---
Measurements Intervals [place] Rate: 78 P: 53 MA: 150 QRS: 17 QRSD: 98 T: 35 QT: 351 QTc: 401 Interpretive Statements SINUS RHYTHM LOW QRS VOLTAGE IN PRECORDIAL LEADS CONSIDER INFERIOR INFARCT, AGE INDETERMINATE ABNORMAL ECG COMPARED TO ECG 01/23/2023 22:32:36 NO SIGNIFICANT CHANGES Electronically Signed On 04-29-2023 6:24:30 CDT by Nilson De La Rosa D.O.
[2023-04-28 22:49] LABS: Basophils Absolute Auto 0.1 K/mm3 (0.0-0.1); Basophils Percent Auto 0.6 % (0.2-1.2); Eosinophils Percent Auto 0.2 % (0-4.4); Hematocrit 39.5 % (37.0-47.0); Hemoglobin 12.6 g/dL (12.0-15.0); Immature Granulocyte Absolute 0.03 K/mm3 (0.00-0.031); Immature Granulocyte Percent A 0.3 % (0-0.5); Lymphocytes Absolute Auto 2.11 K/mm3 (0.9-3.2); Lymphocytes Percent Auto 20.4 % (18.3-44.2); Mean Corpuscular HGB Conc 31.9 g/dl (32-36); Mean Corpuscular Hemoglobin 29.6 pg (26-34); Mean Corpuscular Volume 92.7 fl (80-100); Mean Platelet Volume 8.5 fl (7.4-10.4); Monocytes Absolute Auto 0.8 K/mm3 (0.1-0.6); Monocytes Percent Auto 7.9 % (2.6-8.5); Neutrophils Absolute Auto 7.3 K/mm3 (1.3-6.7); Neutrophils Percent Auto 70.6 % (45.5-73.1); Platelet Count Result 440 k/mm3 (150-375); Red Blood Count 4.26 M/mm3 (4.2-5.4); Red Cell Distribution Width 13.3 % (11.5-14.5); White Blood Count 10.3 K/mm3 (4.5-10.0)
[2023-04-28 23:00] LABS: INR 1.1; Prothrombin Time 14.2 Seconds (11.1-14.7)
[2023-04-28 23:02] LABS: Alanine Aminotransferase 18 U/L (6-35); Alkaline Phosphatase 66 U/L (38-126); Anion Gap 8 mmol/L (8-16); Aspartate Amino Transferase 23 U/L (14-36); Bilirubin,Total 0.5 mg/dL (0.2-1.3); Blood Urea Nitrogen 14 mg/dL (7-17); Calcium 8.8 mg/dL (8.4-10.2); Carbon Dioxide 25 mmol/L (22-30); Chloride 100 mmol/L (98-107); Estimated CRCL calculation 62 ml/min; Estimated Glomerular Filt Rate 48; Glucose 91 mg/dL (65-110); Lipase 96 U/L (23-300); Potassium 4.1 mmol/L (3.4-5.0); Sodium 133 mmol/L (137-145)
[2023-04-28 23:10] LABS: Troponin I < 0.012 ng/mL (0.000-0.034)
[2023-04-29 02:25] LABS: Troponin I < 0.012 ng/mL (0.000-0.034)
--- NOTE | 2023-04-29 03:04 | ED.GENADULT ---
HPI - General Adult General Chief complaint: Chest Pain Stated complaint: chest tightness Time Seen by Provider: 04/29/23 01:45 History of Present Illness HPI narrative: Patient 52-year-old female presents the emergency department with chief complaint of chest discomfort. The patient reports that she just started taking a trimethoprim antibiotic and started having some discomfort in her chest today the patient states been ongoing since this morning reports that she feels a little nauseated with it patient believes it is most likely secondary to the antibiotic but was concerned that it could be a heart patient reports that the symptoms have not improved by anything and reports that she has had no diaphoresis no shortness of breath no radiation to her arm. Related Data Home Medications Medication Instructions Recorded Confirmed medroxyprogesterone 150 mg/mL 150 mg IM [id number] 08/11/03/09/23 intramuscular suspension (Depo-Provera) ergocalciferol (vitamin D2) 1,250 50,000 unit PO WEEKLY 03/09/23 03/09/23 mcg (50,000 unit) capsule (Vitamin D2) Allergies Allergy/AdvReac Type Severity Reaction Status Date / Time codeine Allergy Unknown Nausea and Verified 03/09/23 10:26 Vomiting hydrocodone Allergy Unknown Nausea and Verified 03/09/23 10:26 Vomiting morphine Allergy Unknown Redness of Verified 03/09/23 10:26 Skin nitrofurantoin Allergy Unknown Dyspnea / Verified 03/09/23 10:26 SOB Sulfa (Sulfonamide Allergy Unknown RASH Verified 03/09/23 10:26 Antibiotics) sulfanilamide Allergy Unknown Nausea and Verified 03/09/23 10:26 Vomiting NAIL [place]IAN REMOVER Allergy Severe ITCHING Uncoded 03/09/23 10:26 AND RASH CONFIRMED 02/21/08 NITROFURANTOIN MACROCRYSTAL Allergy Severe SOB, Uncoded 03/09/23 10:26 VOMITING Review of Systems Review of Systems: A 10 system review of systems was completed on the patient and is negative except for what is stated in the HPI. Nursing and ancillary documentation was reviewed. [facility] Past Medical History Medical History Anxiety Depression, major, recurrent, in partial remission GERD (gastroesophageal reflux disease) Panic attacks Scalp cyst Unspecified asthma, uncomplicated Vitamin D deficiency Surgical History Surgical History Hx of abdominoplasty [place] teeth extracted Family History Family History Grandparent Heart disease Cerebrovascular accident Cancer Mother Hypertension Arthritis Sibling Hypertension Social History Social History Smoking status: Former smoker Second hand tobacco smoke exposure: No Smoking end date: 08/17/13 Alcohol intake: current Substance use: never Lack of Transportation: No Lack of Food: Never True Current Housing: I Have Housing Concerned About Future Housing: No Difficulty Paying Gas/Electric Bills: No Difficulty Paying for Meds: No Currently Unemployed: No Education: High School Diploma/GED Difficulty w/ Childcare or Family Care: No Living arrangements: with family Occupation/Education: occupation Gender identity (if verbalized by the patient): Female Agree to blood products: Yes Exam Narrative: GENERAL: Well-appearing, well-nourished, and in no acute distress. HEAD: Normocephalic, atraumatic. EYES: PERRLA and EOMI. ENT: Nares clear, no rhinorrhea or epistaxis. Mucous membranes moist. NECK: Supple. CHEST: Clear to auscultation. No respiratory distress. HEART: Regular rate and rhythm. No murmur heard. Normal peripheral pulses. ABDOMEN: Soft, nontender, nondistended, normal active bowel sounds. EXTREMITIES: Normal range of motion. No edema. SKIN: Warm, dry, no rash. NEURO: No focal deficit
== END 2023-04-29 03:34 | disposition home or self-care (01) ==
PROVIDERS: Emergency Provider Emergency Medicine; PCP Family Medicine
DX: R07.89 Other chest pain (principal); J45.909 Unspecified asthma, uncomplicated; E55.9 Vitamin D deficiency, unspecified; K21.9 Gastro-esophageal reflux disease without esophagitis; Z87.891 Personal history of nicotine dependence; F41.9 Anxiety disorder, unspecified; F33.41 Major depressive disorder, recurrent, in partial remission
CPT/HCPCS: 36415; 71046; 80053; 83690; 84484; 85025; 85610; 85730; 93005; 99284

== ENCOUNTER 2023-05-08 14:23 | Outpatient (CLI) | payer OTHER, SELFPAY ==
--- NOTE | ~2023-05-08 | US_ITS ---
EXAMINATION: US retroperitoneal comp DATE: 05/08/2023 15:15 INDICATION: Recurrent cystitis TECHNIQUE: Multiple ultrasound grayscale images of the kidneys were obtained. COMPARISON: None. FINDINGS: The right kidney measures 10.5 x 5.9 x 5.1 cm. The left kidney measures 10.5 x 5.0 x 5.7 cm. The kidn eys demonstrate normal echogenicity. There is no hydronephrosis in either kidney. No stones identifi ed. The bladder is normal. IMPRESSION: 1. Normal kidneys without hydronephrosis. Reviewed, dictated and finalized at location A.
== END 2023-05-08 14:24 | disposition home or self-care (01) ==
PROVIDERS: PCP Family Medicine; Visit Provider Nurse Practitioner Family
DX: N30.90 Cystitis, unspecified without hematuria (principal)
CPT/HCPCS: 76770

== ENCOUNTER 2023-05-30 07:19 | Emergency (ER) | payer OTHER, SELFPAY ==
[2023-05-30] VITALS (30 sets, daily range): BP systolic 136–155; BP diastolic 71–106; PULSE 69–100; RESP 0–24; TEMP 36.3; O2SAT 97–100
--- NOTE | ~2023-05-30 | XR_ITS ---
EXAMINATION: XR chest 2V DATE: 05/30/2023 08:20 INDICATION: Chest pain. TECHNIQUE: Frontal and lateral views of the chest were obtained. COMPARISON: Chest 2 views 04/28/2023 FINDINGS: There is no pneumonia, pleural effusion, or pneumothorax. The heart size is normal. IMPRESSION: 1. No acute cardiopulmonary disease. Reviewed, dictated and finalized at location A.
--- NOTE | 2023-05-30 07:25 | ECG_ITS ---
Measurements Intervals [place] Rate: 78 P: 51 [place]: 135 QRS: 20 QRSD: 98 T: 24 QT: 358 QTc: 409 Interpretive Statements SINUS RHYTHM Electronically Signed On 05-31-2023 12:51:52 CDT by Milind Carolina M.D.
[2023-05-30 07:42] LABS: Basophils Absolute Auto 0.1 K/mm3 (0.0-0.1); Basophils Percent Auto 0.7 % (0.2-1.2); Eosinophils Percent Auto 0.2 % (0-4.4); Hematocrit 39.9 % (37.0-47.0); Immature Granulocyte Absolute 0.02 K/mm3 (0.00-0.031); Immature Granulocyte Percent A 0.2 % (0-0.5); Lymphocytes Absolute Auto 1.09 K/mm3 (0.9-3.2); Mean Corpuscular HGB Conc 32.6 g/dl (32-36); Mean Corpuscular Hemoglobin 30.1 pg (26-34); Mean Corpuscular Volume 92.4 fl (80-100); Mean Platelet Volume 8.6 fl (7.4-10.4); Monocytes Absolute Auto 0.6 K/mm3 (0.1-0.6); Monocytes Percent Auto 6.3 % (2.6-8.5); Neutrophils Absolute Auto 7.3 K/mm3 (1.3-6.7); Neutrophils Percent Auto 80.6 % (45.5-73.1); Platelet Count Result 448 k/mm3 (150-375); Red Blood Count 4.32 M/mm3 (4.2-5.4); White Blood Count 9.1 K/mm3 (4.5-10.0)
[2023-05-30 07:59] LABS: Alanine Aminotransferase 15 U/L (6-35); Albumin Level 4.2 g/dL (3.5-5.1); Alkaline Phosphatase 69 U/L (38-126); Anion Gap 7 mmol/L (8-16); Aspartate Amino Transferase 19 U/L (14-36); Bilirubin,Total 0.6 mg/dL (0.2-1.3); Blood Urea Nitrogen 16 mg/dL (7-17); Calcium 9.2 mg/dL (8.4-10.2); Carbon Dioxide 28 mmol/L (22-30); Chloride 102 mmol/L (98-107); Estimated CRCL calculation 71 ml/min; Estimated Glomerular Filt Rate 59; Glucose 84 mg/dL (65-110); Lipase 129 U/L (23-300); Sodium 137 mmol/L (137-145)
[2023-05-30 08:00] LABS: Prothrombin Time 13.4 Seconds (11.1-14.7)
[2023-05-30 08:01] LABS: Partial Thromboplastin Time 30.2 SECONDS (22.3-36.8)
[2023-05-30 08:11] LABS: Troponin I < 0.012 ng/mL (0.000-0.034)
--- NOTE | 2023-05-30 09:11 | ED.GENADULT ---
HPI - General Adult General Chief complaint: Chest Pain Stated complaint: back pain, chest pain Time Seen by Provider: 05/30/23 08:12 History of Present Illness HPI narrative: 52-year-old female presents to the emergency department for evaluation of back pain that radiates to her abdomen. Patient reports this has been ongoing for the past 3 days. Patient denies anything that makes the pain better or worse. Patient denies any radiation of the pain to her neck or arm. Related Data Home Medications Medication Instructions Recorded Confirmed medroxyprogesterone 150 mg/mL 150 mg IM [id number] 08/11/19 03/09/23 intramuscular suspension (Depo-Provera) ergocalciferol (vitamin D2) 1,250 50,000 unit PO WEEKLY 03/09/23 03/09/23 mcg (50,000 unit) capsule (Vitamin D2) Allergies Allergy/AdvReac Type Severity Reaction Status Date / Time codeine Allergy Unknown Nausea and Verified 05/30/23 07:37 Vomiting hydrocodone Allergy Unknown Nausea and Verified 05/30/23 07:37 Vomiting morphine Allergy Unknown Redness of Verified 05/30/23 07:37 Skin nitrofurantoin Allergy Unknown Dyspnea / Verified 05/30/23 07:37 SOB Sulfa (Sulfonamide Allergy Unknown RASH Verified 05/30/23 07:37 Antibiotics) sulfanilamide Allergy Unknown Nausea and Verified 05/30/23 07:37 Vomiting NAIL [place] REMOVER Allergy Severe ITCHING Uncoded 05/30/23 07:37 AND RASH CONFIRMED 02/21/08 NITROFURANTOIN MACROCRYSTAL Allergy Severe SOB, Uncoded 05/30/23 07:37 VOMITING Review of Systems Review of Systems: All systems reviewed & are unremarkable except as noted in HPI and below PMFSH Past Medical History Medical History Anxiety Depression, major, recurrent, in partial remission GERD (gastroesophageal reflux disease) Panic attacks Scalp cyst Unspecified asthma, uncomplicated Vitamin D deficiency Surgical History Surgical History Hx of abdominoplasty [place] teeth extracted Family History Family History Grandparent Heart disease Cerebrovascular accident Cancer Mother Hypertension Arthritis Sibling Hypertension Social History Social History Smoking status: Former smoker Second hand tobacco smoke exposure: No Smoking end date: 08/17/13 Alcohol intake: current Substance use: never Lack of Transportation: No Lack of Food: Never True Current Housing: I Have Housing Concerned About Future Housing: No Difficulty Paying Gas/Electric Bills: No Difficulty Paying for Meds: No Currently Unemployed: No Education: High School Diploma/GED Difficulty w/ Childcare or Family Care: No Living arrangements: with family Occupation/Education: occupation Gender identity (if verbalized by the patient): Female Agree to blood products: Yes Exam Narrative: APPEARANCE: Well appearing, no pain, no distress, well-nourished. HEAD: normocephalic, atraumatic. EYES: PERRLA/EOMI, conjunctivae clear. NOSE: Normal no drainage NECK: Supple. No adenopathy, no masses. RESPIRATORY: Airway patent, respirations nonlabored. Clear to auscultation bilaterally, no rales, rhonchi, wheezing. CARDIOVASCULAR: Regular rate and rhythm without murmurs rubs or gallops. ABDOMINAL: Soft, epigastric tenderness, nondistended, normal bowel sounds MUSCULOSKELETAL: Moves all extremities. Strength/ROM intact, No edema, No calf tenderness. NEURO: Alert. Cranial nerves II through XII intact. Grossly intact SKIN: Warm, dry. Normal Color Course Course Emergency Course: 52-year-old female present emergency department for evaluation of epigastric pain that radiates to her back. Patient is afebrile with no leukocytosis and a stable hemoglobin. Patient had normal T. bi
[2023-05-30 10:54] LABS: Troponin I < 0.012 ng/mL (0.000-0.034)
[2023-05-30] MEDS: BELLADONNA ALK/PHENOB ELIX 10 ML, MAG HYDROX/ALUMINUM HYD/SIMETH 30 ML, LIDOCAINE HCL 2... PO (10:54)
== END 2023-05-30 12:00 | disposition home or self-care (01) ==
PROVIDERS: Emergency Provider Emergency Medicine; PCP Family Medicine
DX: R10.13 Epigastric pain (principal); R07.89 Other chest pain; J45.909 Unspecified asthma, uncomplicated; E55.9 Vitamin D deficiency, unspecified; K21.9 Gastro-esophageal reflux disease without esophagitis; F41.9 Anxiety disorder, unspecified; F33.41 Major depressive disorder, recurrent, in partial remission; Z87.891 Personal history of nicotine dependence
CPT/HCPCS: 36415; 71046; 80053; 83690; 84484; 85025; 85610; 85730; 93005; 99284; A9270

== ENCOUNTER 2023-06-24 10:04 | Outpatient (CLI) | payer OTHER, SELFPAY ==
[2023-06-24 20:27] LABS: Vitamin D 25 Hydroxy 63.7 ng/mL
== END 2023-06-24 10:05 | disposition home or self-care (01) ==
LOC: ANHGOSHLAB 10:05
PROVIDERS: PCP Family Medicine; Visit Provider Nurse Practitioner
DX: E55.9 Vitamin D deficiency, unspecified (principal); Z13.21 Encounter for screening for nutritional disorder
CPT/HCPCS: 36415; 82306

== ENCOUNTER 2023-07-03 00:54 | Day surgery (SDC) | payer OTHER, SELFPAY ==
[2023-06-22 10:39] VITALS: BMI 43.7
[2023-07-03 12:07] VITALS: BP 145/82; PULSE 84; RESP 18; TEMP 36.4; O2SAT 100
[2023-07-03] MEDS: LACTATED RINGERS 1,000 ML 150 ML IV CONT (12:14)
--- NOTE | 2023-07-03 12:46 | PM.HPGS ---
History of Present Illness History of Present Illness Consent: Risks, benefits, and alternatives have been discussed and questions answered. Patient agrees to proceed with procedure. Chief complaint: Hx. of other diseases of the digestive system Narrative: Anastacia Gray is a 52 year old female with a history of acid reflux disease who recently has developed pain in the epigastric area radiating to and sometimes from the back. She had been in the emergency room were epigastric tenderness was noted. She does take diclofenac daily. Review of Systems Review of Systems: All systems reviewed & are unremarkable except as noted in HPI and below PMFSH Past Medical History Medical History Anxiety Depression, major, recurrent, in partial remission GERD (gastroesophageal reflux disease) Panic attacks Scalp cyst Unspecified asthma, uncomplicated Vitamin D deficiency Surgical History Surgical History Hx of abdominoplasty [place] teeth extracted Family History Family History Grandparent Heart disease Cerebrovascular accident Cancer Mother Hypertension Arthritis Sibling Hypertension Social History Social History Smoking packs per day: 1 Smoking cigarettes per day: 20.0 Years smoked: 23 Smoking pack-years: 23.00 Smoking status: Former smoker Second hand tobacco smoke exposure: No Smoking end date: 08/17/13 Alcohol intake: current Alcohol use details: Socially Substance use: never Substance use type: does not use Lack of Transportation: No Lack of Food: Never True Current Housing: I Have Housing Concerned About Future Housing: No Difficulty Paying Gas/Electric Bills: No Difficulty Paying for Meds: No Currently Unemployed: No Education: High School Diploma/GED Difficulty w/ Childcare or Family Care: No Living arrangements: alone Occupation/Education: occupation Gender identity (if verbalized by the patient): Female Agree to blood products: Yes Meds Home Medications and Allergies Home Medications Medication Instructions Recorded Confirmed Type medroxyprogesterone 150 mg/mL 150 mg IM [id number] 08/11/19 07/03/23 History intramuscular suspension (Depo-Provera) clonazepam 0.5 mg tablet (Klonopin) 0.25 mg PO DAILY PRN panic 02/11/23 07/03/23 Rx attack(s) #14 tabs buspirone 15 mg tablet 15 mg PO BID #60 tabs 03/09/23 07/03/23 Rx ergocalciferol (vitamin D2) 1,250 50,000 unit PO WEEKLY 03/09/23 07/03/23 History mcg (50,000 unit) capsule (Vitamin D2) lisinopril 20 mg tablet 20 mg PO DAILY #90 tabs 03/19/23 07/03/23 Rx diclofenac sodium 50 mg 50 mg PO BID #180 tabs 04/06/23 07/03/23 Rx tablet,delayed release hydrochlorothiazide 12.5 mg capsule 12.5 mg PO DAILY #90 caps 04/23/23 07/03/23 Rx sucralfate 100 mg/mL oral 2 g (20 mL) PO BID PRN epigastric 05/30/23 07/03/23 Rx suspension (Carafate) pain #414 mL bupropion HCl 150 mg tablet,12 hr 150 mg PO BID #180 tabs 06/04/23 07/03/23 Rx sustained-release omeprazole 40 mg capsule,delayed 40 mg PO DAILY #180 caps 06/15/23 07/03/23 Rx release calcium carb-vitamin D3 ER 600 mg 1 tablet PO DAILY 06/22/23 07/03/23 History (1,500 mg)-500 unit tablet,ER 24 hr Allergies Allergy/AdvReac Type Severity Reaction Status Date / Time codeine Allergy Unknown Nausea and Verified 07/03/23 12:01 Vomiting hydrocodone Allergy Unknown Nausea and Verified 07/03/23 12:01 Vomiting morphine Allergy Unknown Redness of Verified 07/03/23 12:01 Skin nitrofurantoin Allergy Unknown Dyspnea / Verified 07/03/23 12:01 SOB Sulfa (Sulfonamide Allergy Unknown RASH Verified 07/03/23 12:01 Antibiotics) sulfanilamide Allergy Unknown Nausea and Verified 07/03/23 12:01 Vomiting trimet
--- NOTE | 2023-07-03 12:46 | WPDANESEPPF ---
Anes - Initial Pre Proc Eval Procedure: Operation Date: 07/03/23 13:00 Proposed Procedures p Esophagogastroduodenoscopy - Chavo Laureano MD Date/Time: 07/03/23 12:46 Surgeon: Chavo Laureano MD Pre Op Diagnosis: Hx. of other diseases of the digestive system Patient Data Age: 52 Gender: F Height: 1.6 m Weight: 111.1 kg Last Vital Signs Temp 97.5 F L 07/03/23 12:07 Pulse 84 07/03/23 12:07 Resp 18 07/03/23 12:07 BP 145/82 H 07/03/23 12:07 Pulse Ox 100 07/03/23 12:07 O2 Del Method Room Air 07/03/23 12:07 Allergies Allergy/AdvReac Type Severity Reaction Status Date / Time codeine Allergy Unknown Nausea and Verified 07/03/23 12:01 Vomiting hydrocodone Allergy Unknown Nausea and Verified 07/03/23 12:01 Vomiting morphine Allergy Unknown Redness of Verified 07/03/23 12:01 Skin nitrofurantoin Allergy Unknown Dyspnea / Verified 07/03/23 12:01 SOB Sulfa (Sulfonamide Allergy Unknown RASH Verified 07/03/23 12:01 Antibiotics) sulfanilamide Allergy Unknown Nausea and Verified 07/03/23 12:01 Vomiting trimethoprim Allergy Dyspnea / Verified 07/03/23 12:01 SOB NAIL [place] REMOVER Allergy Severe ITCHING Uncoded 07/03/23 12:01 AND RASH CONFIRMED 02/21/08 NITROFURANTOIN MACROCRYSTAL Allergy Severe SOB, Uncoded 07/03/23 12:01 VOMITING Home Medications Medication Instructions Recorded Confirmed Type medroxyprogesterone 150 mg/mL 150 mg IM [id number] 08/11/19 07/03/23 History intramuscular suspension (Depo-Provera) clonazepam 0.5 mg tablet (Klonopin) 0.25 mg PO DAILY PRN panic 02/11/23 07/03/23 Rx attack(s) #14 tabs buspirone 15 mg tablet 15 mg PO BID #60 tabs 03/09/23 07/03/23 Rx ergocalciferol (vitamin D2) 1,250 50,000 unit PO WEEKLY 03/09/23 07/03/23 History mcg (50,000 unit) capsule (Vitamin D2) lisinopril 20 mg tablet 20 mg PO DAILY #90 tabs 03/19/23 07/03/23 Rx diclofenac sodium 50 mg 50 mg PO BID #180 tabs 04/06/23 07/03/23 Rx tablet,delayed release hydrochlorothiazide 12.5 mg capsule 12.5 mg PO DAILY #90 caps 04/23/23 07/03/23 Rx sucralfate 100 mg/mL oral 2 g (20 mL) PO BID PRN epigastric 05/30/23 07/03/23 Rx suspension (Carafate) pain #414 mL bupropion HCl 150 mg tablet,12 hr 150 mg PO BID #180 tabs 06/04/23 07/03/23 Rx sustained-release omeprazole 40 mg capsule,delayed 40 mg PO DAILY #180 caps 06/15/23 07/03/23 Rx release calcium carb-vitamin D3 ER 600 mg 1 tablet PO DAILY 06/22/23 07/03/23 History (1,500 mg)-500 unit tablet,ER 24 hr Patient hx anesthesia problems: none Family hx anesthesia problems: none Results Review: All pre-operative results and documents have been reviewed as part of the pre-operative evaluation. [facility] Past Medical History Medical History Anxiety Depression, major, recurrent, in partial remission GERD (gastroesophageal reflux disease) Panic attacks Scalp cyst Unspecified asthma, uncomplicated Vitamin D deficiency Surgical History Surgical History Hx of abdominoplasty [place] teeth extracted Family History Family History Grandparent Heart disease Cerebrovascular accident Cancer Mother Hypertension Arthritis Sibling Hypertension Social History Social History Smoking packs per day: 1 Smoking cigarettes per day: 20.0 Years smoked: 23 Smoking pack-years: 23.00 Smoking status: Former smoker Second hand tobacco smoke exposure: No Smoking end date: 08/17/13 Alcohol intake: current Alcohol use details: Socially Substance use: never Substance use type: does not use Lack of Transportation: No Lack of Food: Never True Current Housing: I Have Housing Concerned About Future Housing: No Difficulty Paying Gas/Electr
[2023-07-03] MEDS: SIMETHICONE ORAL SUSPENSION 20 MG/0.3 ML 30 ML BOTTLE 0.6 ML IRRIGATION (12:53)
[2023-07-03 13:01] VITALS: BP 145/121; PULSE 91; RESP 27; O2SAT 100
[2023-07-03 13:11] VITALS: BP 142/91; PULSE 71; RESP 24; O2SAT 100
[2023-07-03 13:21] VITALS: BP 137/87; PULSE 74; RESP 22; O2SAT 100
== END 2023-07-03 13:29 | disposition home or self-care (01) ==
PROVIDERS: PCP Family Medicine; Visit Provider Internal Medicine Gastroenterology
PROC: 0DJ08ZZ Inspection of Upper Intestinal Tract, Via Natural or Artificial Opening Endoscopic (ICD-10-PCS; CPT 43235; principal; 2023-07-03 13:00)
DX: K21.9 Gastro-esophageal reflux disease without esophagitis (principal); F41.9 Anxiety disorder, unspecified; F33.41 Major depressive disorder, recurrent, in partial remission; Z87.891 Personal history of nicotine dependence; E66.01 Morbid (severe) obesity due to excess calories; Z68.41 Body mass index [BMI] 40.0-44.9, adult
CPT/HCPCS: 43235; J2704; J7120

== ENCOUNTER 2023-07-13 07:45 | Emergency (ER) | payer OTHER, SELFPAY ==
--- NOTE | ~2023-07-13 | XR_ITS ---
XR hip LT min 3V w AP pelvis 07/13/2023 08:23 Indication: Left hip pain Procedure: AP pelvis and 2 views left hip Comparison: No prior studies for comparison. Findings: Pelvic rings are intact. No fracture, subluxation or dislocation. No significant soft tissu e abnormality. No foreign bodies. Impression: 1: No acute fracture. Reviewed, dictated and finalized at location B. P [facility] Impression: 1: No acute fracture.
[2023-07-13 07:49] VITALS: BP 158/83; PULSE 88; RESP 18; TEMP 36.6; O2SAT 100
--- NOTE | 2023-07-13 08:57 | ED.FALL ---
HPI - Fall General Chief Complaint: Fall Stated Complaint: Fall Time Seen by Provider: 07/13/23 08:11 History of Present Illness HPI Narrative: 52-year-old female presenting to the emergency department after having a fall from slipping on ice. Patient states she was getting out of her car slipped on ice and fell to her left side. Patient does complain of left hip pain but was able to ambulate. Patient does have a contusion on her left knee with a superficial abrasion. Patient denies striking head denies loss consciousness. Related Data Home Medications Medication Instructions Recorded Confirmed medroxyprogesterone 150 mg/mL 150 mg IM [id number] 08/11/19 07/03/23 intramuscular suspension (Depo-Provera) ergocalciferol (vitamin D2) 1,250 50,000 unit PO WEEKLY 03/09/23 07/03/23 mcg (50,000 unit) capsule (Vitamin D2) calcium carb-vitamin D3 ER 600 mg 1 tablet PO DAILY 06/22/23 07/03/23 (1,500 mg)-500 unit tablet,ER 24 hr Allergies Allergy/AdvReac Type Severity Reaction Status Date / Time codeine Allergy Unknown Nausea and Verified 07/03/23 12:01 Vomiting hydrocodone Allergy Unknown Nausea and Verified 07/03/23 12:01 Vomiting morphine Allergy Unknown Redness of Verified 07/03/23 12:01 Skin nitrofurantoin Allergy Unknown Dyspnea / Verified 07/03/23 12:01 SOB Sulfa (Sulfonamide Allergy Unknown RASH Verified 07/03/23 12:01 Antibiotics) sulfanilamide Allergy Unknown Nausea and Verified 07/03/23 12:01 Vomiting trimethoprim Allergy Dyspnea / Verified 07/03/23 12:01 SOB NAIL [place]IAN REMOVER Allergy Severe ITCHING Uncoded 07/03/23 12:01 AND RASH CONFIRMED 02/21/08 NITROFURANTOIN MACROCRYSTAL Allergy Severe SOB, Uncoded 07/03/23 12:01 VOMITING Review of Systems Review of Systems: All systems reviewed & are unremarkable except as noted in HPI and below PMFSH Past Medical History Medical History Anxiety Depression, major, recurrent, in partial remission GERD (gastroesophageal reflux disease) Panic attacks Scalp cyst Unspecified asthma, uncomplicated Vitamin D deficiency Surgical History Surgical History Hx of abdominoplasty [place] teeth extracted Family History Family History Grandparent Heart disease Cerebrovascular accident Cancer Mother Hypertension Arthritis Sibling Hypertension Social History Social History Smoking packs per day: 1 Smoking cigarettes per day: 20.0 Years smoked: 23 Smoking pack-years: 23.00 Smoking status: Former smoker Second hand tobacco smoke exposure: No Smoking end date: 08/17/13 Alcohol intake: current Alcohol use details: Socially Substance use: never Substance use type: does not use Lack of Transportation: No Lack of Food: Never True Current Housing: I Have Housing Concerned About Future Housing: No Difficulty Paying Gas/Electric Bills: No Difficulty Paying for Meds: No Currently Unemployed: No Education: High School Diploma/GED Difficulty w/ Childcare or Family Care: No Living arrangements: alone Occupation/Education: occupation Gender identity (if verbalized by the patient): Female Agree to blood products: Yes Exam Narrative: APPEARANCE: Well appearing, no pain, no distress, well-nourished. HEAD: normocephalic, atraumatic. EYES: PERRLA/EOMI, conjunctivae clear. NOSE: Normal no drainage EARS:TMS clear with good light reflex. THROAT: Pharynx clear, no exudate. NECK: Supple. No adenopathy, no masses. RESPIRATORY: Airway patent, respirations nonlabored. Clear to auscultation bilaterally, no rales, rhonchi, wheezing. CARDIOVASCULAR: Regular rate and rhythm without murmurs rubs or gallops. ABDOMINAL: Soft, nontender, nondistended, normal sasha
[2023-07-13] MEDS: CYCLOBENZAPRINE HCL 10 MG TABLET PO (09:20)
== END 2023-07-13 09:24 | disposition home or self-care (01) ==
PROVIDERS: Emergency Provider Emergency Medicine; PCP Family Medicine
DX: S79.912A Unspecified injury of left hip, initial encounter (principal); S80.02XA Contusion of left knee, initial encounter; S80.212A Abrasion, left knee, initial encounter; K21.9 Gastro-esophageal reflux disease without esophagitis; J45.909 Unspecified asthma, uncomplicated; E55.9 Vitamin D deficiency, unspecified; Z87.891 Personal history of nicotine dependence; W00.0XXA Fall on same level due to ice and snow, initial encounter
CPT/HCPCS: 73502; 99283; A9270

== ENCOUNTER 2024-02-08 05:41 | Emergency (ER) | payer OTHER, SELFPAY ==
[2024-02-08] VITALS (13 sets, daily range): BP systolic 122–133; BP diastolic 72–83; PULSE 62–94; RESP 15–20; TEMP 36.4; O2SAT 99–100
--- NOTE | ~2024-02-08 | XR_ITS ---
Portable chest x-ray Comparison: 05/30/2023 Clinical History: Fatigue Findings: Lungs are clear, without focal consolidation or pleural effusion. Cardiomediastinal silho uette is stable. Bones and soft tissues are unremarkable. Impression: Normal chest. Reviewed, dictated and finalized at [facility]. Impression: Normal chest.
--- NOTE | 2024-02-08 06:02 | ECG_ITS ---
Test Date: 2024-02-08 06:11:18 Measurements Intervals [place] Rate: 86 P: 0 [place]: 0 QRS: -12 QRSD: 81 T: 1 QT: 302 QTc: 363 Interpretive Statements SINUS RHYTHM LOW QRS VOLTAGE [QRS DEFLECTION < 0.5/1.0 mV IN LIMB/CHEST LEADS] CONSIDER PREVIOUS INFERIOR INFARCTION ABNORMAL ECG No previous ECG available for comparison Electronically Signed On 02-08-2024 07:30:03 CDT by Willard Greene M.D.
[2024-02-08] MEDS: SODIUM CHLORIDE 0.9% IV 2,000 ML 999 ML IV CONT (06:11)
[2024-02-08 06:19] LABS: Basophils Absolute Auto 0.1 K/mm3 (0.0-0.1); Basophils Percent Auto 0.9 % (0.2-1.2); Eosinophils Percent Auto 0.5 % (0-4.4); Hematocrit 40.9 % (37.0-47.0); Hemoglobin 13.1 g/dL (12.0-15.0); Immature Granulocyte Absolute 0.03 K/mm3 (0.00-0.031); Immature Granulocyte Percent A 0.4 % (0-0.5); Lymphocytes Absolute Auto 1.36 K/mm3 (0.9-3.2); Lymphocytes Percent Auto 17.9 % (18.3-44.2); Mean Corpuscular Hemoglobin 29.3 pg (26-34); Mean Corpuscular Volume 91.5 fl (80-100); Mean Platelet Volume 8.9 fl (7.4-10.4); Monocytes Absolute Auto 0.5 K/mm3 (0.1-0.6); Monocytes Percent Auto 6.4 % (2.6-8.5); Neutrophils Absolute Auto 5.6 K/mm3 (1.3-6.7); Neutrophils Percent Auto 73.9 % (45.5-73.1); Platelet Count Result 426 k/mm3 (150-375); Red Blood Count 4.47 M/mm3 (4.2-5.4); Red Cell Distribution Width 12.6 % (11.5-14.5); White Blood Count 7.6 K/mm3 (4.5-10.0)
[2024-02-08 06:25] LABS: Appearance Urine Clear (Clear); Bacteria Urine None Seen /hpf; Bilirubin Urine Negative (Negative); Blood Urine Negative (Negative); Color Urine Yellow (Yellow); Glucose Urine UA Negative (Negative); Ketones Urine Negative (Negative); Leukocyte Esterase Ur Trace LEU/UL (Negative); Nitrate Urine Negative (Negative); Non Pathogenic Casts 0-2; Protein Urine Negative (Negative); RBC Urine 0-2 /hpf (0-2); Specific Grav Ur 1.012 (1.001-1.035); Squamous Epithelial Cell Urine Few /hpf (Few); Urobilinogen Urine 0.2 mg/dL (<2.0); pH Urine 5.5 (5.0-9.0)
[2024-02-08 06:32] LABS: Alanine Aminotransferase 13 U/L (6-35); Albumin Level 4.2 g/dL (3.5-5.1); Alkaline Phosphatase 63 U/L (38-126); Anion Gap 9 mmol/L (4-12); Aspartate Amino Transferase 16 U/L (14-36); Bilirubin,Total 0.6 mg/dL (0.2-1.3); Blood Urea Nitrogen 14 mg/dL (7-17); Calcium 9.2 mg/dL (8.4-10.2); Carbon Dioxide 22 mmol/L (22-30); Chloride 108 mmol/L (98-107); Estimated CRCL calculation 73 ml/min; Estimated Glomerular Filt Rate 58; Glucose 92 mg/dL (65-110); Potassium 3.9 mmol/L (3.4-5.0); Sodium 139 mmol/L (137-145)
[2024-02-08 06:56] LABS: Influenza A QL RT-PCR Negative (Negative); Influenza B QL RT-PCR Negative (Negative); RSV RNA, RT-PCR Negative (Negative); SARS-CoV-2 RNA PCR Negative (Negative)
[2024-02-08 07:04] LABS: Add Urine Microscopic? YES
--- NOTE | 2024-02-08 07:14 | ED.GENADULT ---
HPI - General Adult General Chief complaint: Unspecified Stated complaint: heat exhaustion Time Seen by Provider: 02/08/24 06:52 History of Present Illness HPI narrative: 53-year-old female presenting to the emergency department for evaluation for suspect heat exhaustion. Patient states that she worked in heat on both Thursday and Thursday and last night had increased tiredness and fatigue. Patient denies any chest pain or shortness of breath. Patient denies any intractable nausea vomiting or diarrhea. Patient denies any abdominal pain. Patient reports she does have a prior history of he did caution this feels very similar. Related Data Home Medications Medication Instructions Recorded Confirmed medroxyprogesterone 150 mg/mL 150 mg IM [id number] 08/11/19 07/03/23 intramuscular suspension (Depo-Provera) ergocalciferol (vitamin D2) 1,250 50,000 unit PO WEEKLY 03/09/23 07/03/23 mcg (50,000 unit) capsule (Vitamin D2) calcium carb-vitamin D3 ER 600 mg 1 tablet PO DAILY 06/22/23 07/03/23 (1,500 mg)-500 unit tablet,ER 24 hr Allergies Allergy/AdvReac Type Severity Reaction Status Date / Time codeine Allergy Unknown Nausea and Verified 02/08/24 05:54 Vomiting hydrocodone Allergy Unknown Nausea and Verified 02/08/24 05:54 Vomiting morphine Allergy Unknown Redness of Verified 02/08/24 05:54 Skin nitrofurantoin Allergy Unknown Dyspnea / Verified 02/08/24 05:54 SOB Sulfa (Sulfonamide Allergy Unknown RASH Verified 02/08/24 05:54 Antibiotics) sulfanilamide Allergy Unknown Nausea and Verified 02/08/24 05:54 Vomiting trimethoprim Allergy Dyspnea / Verified 02/08/24 05:54 SOB NAIL SRI LANKAN REMOVER Allergy Severe ITCHING Uncoded 07/03/23 12:01 AND RASH CONFIRMED 02/21/08 NITROFURANTOIN MACROCRYSTAL Allergy Severe SOB, Uncoded 07/03/23 12:01 VOMITING Review of Systems Review of Systems: All systems reviewed & are unremarkable except as noted in HPI and below PMFSH Past Medical History Medical History Anxiety Depression, major, recurrent, in partial remission GERD (gastroesophageal reflux disease) Panic attacks Scalp cyst Unspecified asthma, uncomplicated Vitamin D deficiency Surgical History Surgical History Hx of abdominoplasty [place] teeth extracted Family History Family History Grandparent Heart disease Cerebrovascular accident Cancer Mother Hypertension Arthritis Sibling Hypertension Social History Social History Smoking packs per day: 1 Smoking cigarettes per day: 20.0 Years smoked: 23 Smoking pack-years: 23.00 Smoking status: Former smoker Second hand tobacco smoke exposure: No Smoking end date: 08/17/13 Alcohol intake: current Alcohol use details: Socially Substance use: never Substance use type: does not use Lack of Transportation: No Lack of Food: Never True Current Housing: I Have Housing Concerned About Future Housing: No Difficulty Paying Gas/Electric Bills: No Difficulty Paying for Meds: No Currently Unemployed: No Education: High School Diploma/GED Difficulty w/ Childcare or Family Care: No Living arrangements: alone Occupation/Education: occupation Gender identity (if verbalized by the patient): Female Agree to blood products: Yes Exam Narrative: APPEARANCE: Well appearing, no pain, no distress, well-nourished. HEAD: normocephalic, atraumatic. EYES: PERRLA/EOMI, conjunctivae clear. NOSE: Normal no drainage EARS:TMS clear with good light reflex. THROAT: Pharynx clear, no exudate. NECK: Supple. No adenopathy, no masses. RESPIRATORY: Airway patent, respirations nonlabored. Clear to auscultation bilaterally, no rales, rhonchi, wheezing. CARDIOVASCULAR: Regular
[2024-02-08] MEDS: SODIUM CHLORIDE 0.9% IV 1,000 ML 999 ML IV CONT (08:21)
== END 2024-02-08 10:03 | disposition home or self-care (01) ==
PROVIDERS: Emergency Medicine; Emergency Provider Emergency Medicine; PCP Family Medicine
DX: T67.5XXA Heat exhaustion, unspecified, initial encounter (principal); Z87.891 Personal history of nicotine dependence; Z20.822 Contact with and (suspected) exposure to COVID-19
CPT/HCPCS: 36415; 71045; 80053; 81001; 85025; 87077; 87086; 87088; 87186; 87637; 93005; 96360; 96361; 99284; J7030

== ENCOUNTER 2024-02-13 14:58 | Emergency (ER) | payer OTHER, SELFPAY ==
--- NOTE | ~2024-02-13 | XR_ITS ---
EXAMINATION: XR chest 2V DATE: 02/13/2024 16:00 INDICATION: Chest pain. TECHNIQUE: Frontal and lateral views of the chest were obtained. COMPARISON: Chest view 02/08/2024 FINDINGS: There is no pneumonia, pleural effusion, or pneumothorax. The heart size is normal. IMPRESSION: 1. No acute cardiopulmonary disease. Reviewed, dictated and finalized at location E.
--- NOTE | 2024-02-13 14:59 | ECG_ITS ---
Test Date: 2024-02-13 15:11:21 Measurements Intervals [place] Rate: 80 P: 59 MD: 128 QRS: 31 QRSD: 99 T: 42 QT: 351 QTc: 406 Interpretive Statements SINUS RHYTHM LOW QRS VOLTAGE IN PRECORDIAL LEADS [QRS DEFLECTION < 1.0 mV IN CHEST LEADS] POSSIBLE RIGHT VENTRICULAR CONDUCTION DELAY [RSR (QR) IN V1/V2] Compared to ECG 02/08/2024 06:11:18 Myocardial infarct finding no longer present Electronically Signed On 02-14-2024 16:10:33 CDT by Jassi Park M.D.
[2024-02-13 15:07] VITALS: BP 145/93; PULSE 84; RESP 20; TEMP 37.1; O2SAT 100
[2024-02-13] MEDS: ASPIRIN 81 MG CHEWABLE TABLET 324 MG PO (15:25)
[2024-02-13 15:28] LABS: Basophils Absolute Auto 0.1 K/mm3 (0.0-0.1); Basophils Percent Auto 0.7 % (0.2-1.2); Eosinophils Absolute Auto 0.1 K/mm3 (0-0.3); Eosinophils Percent Auto 0.7 % (0-4.4); Hematocrit 37.2 % (37.0-47.0); Immature Granulocyte Absolute 0.03 K/mm3 (0.00-0.031); Immature Granulocyte Percent A 0.4 % (0-0.5); Lymphocytes Percent Auto 16.9 % (18.3-44.2); Mean Corpuscular HGB Conc 32.3 g/dl (32-36); Mean Corpuscular Hemoglobin 29.4 pg (26-34); Mean Corpuscular Volume 91.2 fl (80-100); Mean Platelet Volume 8.8 fl (7.4-10.4); Monocytes Absolute Auto 0.7 K/mm3 (0.1-0.6); Monocytes Percent Auto 8.7 % (2.6-8.5); Neutrophils Absolute Auto 5.6 K/mm3 (1.3-6.7); Neutrophils Percent Auto 72.6 % (45.5-73.1); Platelet Count Result 395 k/mm3 (150-375); Red Blood Count 4.08 M/mm3 (4.2-5.4); White Blood Count 7.7 K/mm3 (4.5-10.0)
[2024-02-13 15:30] VITALS: BP 132/88; PULSE 78; RESP 16; O2SAT 100
--- NOTE | 2024-02-13 15:33 | ED.CHESTPAIN ---
HPI - Chest Pain General Chief Complaint: Chest Pain Stated Complaint: chest tight Time Seen by Provider: 02/13/24 15:04 History of Present Illness HPI narrative: 53-year-old female presenting to the emergency department for evaluation for some chest tightness. Once again patient suspects she may have some heat exhaustion. Patient states she has chest tightness but denies any chest pain. Patient denies any associated nausea. Patient is well-appearing upon arrival emergency department. Related Data Home Medications Medication Instructions Recorded Confirmed medroxyprogesterone 150 mg/mL 150 mg IM [id number] 08/11/19 07/03/23 intramuscular suspension (Depo-Provera) ergocalciferol (vitamin D2) 1,250 50,000 unit PO WEEKLY 03/09/23 07/03/23 mcg (50,000 unit) capsule (Vitamin D2) calcium carb-vitamin D3 ER 600 mg 1 tablet PO DAILY 06/22/23 07/03/23 (1,500 mg)-500 unit tablet,ER 24 hr Allergies Allergy/AdvReac Type Severity Reaction Status Date / Time nitrofurantoin Allergy Severe Dyspnea / Verified 02/13/24 15:14 SOB/ VOMITING codeine Allergy Unknown Nausea and Verified 02/13/24 15:14 Vomiting hydrocodone Allergy Unknown Nausea and Verified 02/13/24 15:14 Vomiting morphine Allergy Unknown Redness of Verified 02/13/24 15:14 Skin Sulfa (Sulfonamide Allergy Unknown RASH Verified 02/13/24 15:14 Antibiotics) sulfanilamide Allergy Unknown Nausea and Verified 02/13/24 15:14 Vomiting trimethoprim Allergy Dyspnea / Verified 02/13/24 15:14 SOB NAIL SWISS REMOVER Allergy Severe ITCHING Uncoded 02/13/24 15:14 AND RASH CONFIRMED 02/21/08 Review of Systems Review of Systems: All systems reviewed & are unremarkable except as noted in HPI and below PMFSH Past Medical History Medical History Anxiety Depression, major, recurrent, in partial remission GERD (gastroesophageal reflux disease) Panic attacks Scalp cyst Unspecified asthma, uncomplicated Vitamin D deficiency Surgical History Surgical History Hx of abdominoplasty [place] teeth extracted Family History Family History Grandparent Heart disease Cerebrovascular accident Cancer Mother Hypertension Arthritis Sibling Hypertension Social History Social History Smoking packs per day: 1 Smoking cigarettes per day: 20.0 Years smoked: 23 Smoking pack-years: 23.00 Smoking status: Former smoker Second hand tobacco smoke exposure: No Smoking end date: 08/17/13 Alcohol intake: current Alcohol use details: Socially Substance use: never Substance use type: does not use Lack of Transportation: No Lack of Food: Never True Current Housing: I Have Housing Concerned About Future Housing: No Difficulty Paying Gas/Electric Bills: No Difficulty Paying for Meds: No Currently Unemployed: No Education: High School Diploma/GED Difficulty w/ Childcare or Family Care: No Living arrangements: alone Occupation/Education: occupation Gender identity (if verbalized by the patient): Female Agree to blood products: Yes Exam Narrative: APPEARANCE: Well appearing, no pain, no distress, well-nourished. HEAD: normocephalic, atraumatic. EYES: PERRLA/EOMI, conjunctivae clear. NOSE: Normal no drainage EARS:TMS clear with good light reflex. THROAT: Pharynx clear, no exudate. NECK: Supple. No adenopathy, no masses. RESPIRATORY: Airway patent, respirations nonlabored. Clear to auscultation bilaterally, no rales, rhonchi, wheezing. CARDIOVASCULAR: Regular rate and rhythm without murmurs rubs or gallops. ABDOMINAL: Soft, nontender, nondistended, normal bowel sounds MUSCULOSKELETAL: Moves all extremities. Strength/ROM intact, No edema, No calf tenderness. NEURO: Amjo
[2024-02-13 15:38] LABS: Alanine Aminotransferase 13 U/L (6-35); Alkaline Phosphatase 60 U/L (38-126); Anion Gap 6 mmol/L (4-12); Aspartate Amino Transferase 19 U/L (14-36); Bilirubin,Total 0.4 mg/dL (0.2-1.3); Blood Urea Nitrogen 14 mg/dL (7-17); Calcium 8.7 mg/dL (8.4-10.2); Carbon Dioxide 26 mmol/L (22-30); Chloride 105 mmol/L (98-107); Estimated CRCL calculation 73 ml/min; Estimated Glomerular Filt Rate 58; Glucose 90 mg/dL (65-110); Lipase 122 U/L (23-300); Sodium 137 mmol/L (137-145)
[2024-02-13 15:39] LABS: Partial Thromboplastin Time 27.4 Seconds (22.3-36.8); Prothrombin Time 13.6 Seconds (11.1-14.7)
[2024-02-13 15:50] LABS: Troponin I < 0.012 ng/mL (0.000-0.034)
[2024-02-13 17:02] VITALS: BP 139/76; PULSE 72; RESP 18; O2SAT 100
[2024-02-13 18:11] LABS: Troponin I < 0.012 ng/mL (0.000-0.034)
== END 2024-02-13 18:33 | disposition home or self-care (01) ==
PROVIDERS: Emergency Provider Emergency Medicine; PCP Family Medicine
DX: R07.89 Other chest pain (principal); F41.9 Anxiety disorder, unspecified; F32.A Depression, unspecified; K21.9 Gastro-esophageal reflux disease without esophagitis
CPT/HCPCS: 36415; 71046; 80053; 83690; 84484; 85025; 85610; 85730; 93005; 99284; A9270

== ENCOUNTER 2024-04-08 07:11 | Outpatient (CLI) | payer OTHER, SELFPAY ==
--- NOTE | ~2024-04-08 | MM_ITS ---
EXAMINATION: MM screening shandra BI w neel HISTORY: Screening TECHNIQUE: Craniocaudal and mediolateral oblique 3-D tomosynthesis images were obtained and synthetic 2-D images were generated. CAD analysis was submitted and interpreted. COMPARISON: Comparison to multiple prior studies sequentially, with oldest reviewed study dated 10/31. BREAST PARENCHYMAL COMPOSITION: Not Dense: The breasts are almost entirely fatty. FINDINGS: There is no evidence of suspicious mass, calcification, or architectural distortion to sugg est malignancy in either breast. There has been no suspicious interval change. IMPRESSION: 1. No mammographic evidence of malignancy. 2. Recommend routine screening mammography in one year. BI-RADS Category 1: Negative Reviewed, dictated and finalized at location B.
== END 2024-04-08 07:12 | disposition home or self-care (01) ==
PROVIDERS: PCP Family Medicine; Visit Provider Nurse Practitioner
DX: Z12.31 Encounter for screening mammogram for malignant neoplasm of breast (principal)
CPT/HCPCS: 77063; 77067

== ENCOUNTER 2024-05-13 05:49 | Emergency (ER) | payer OTHER, SELFPAY ==
--- NOTE | ~2024-05-13 | XR_ITS ---
EXAMINATION: XR chest 2V DATE: 05/13/2024 07:01 INDICATION: Chest pain radiating across the chest TECHNIQUE: PA and lateral views of the chest were obtained. COMPARISON: Chest radiograph dated 02/13/2024 FINDINGS: Unchanged minimal lingular atelectasis/scarring along the apex of the heart. No new airspace opacitie s, pulmonary edema, pleural effusion or pneumothorax. The cardiomediastinal silhouette is normal. Mil d thoracolumbar dextrocurvature with mild spondylosis. IMPRESSION: 1. No acute cardiopulmonary disease. Reviewed, dictated and finalized at location A.
[2024-05-13 05:56] VITALS: BP 126/84; PULSE 87; RESP 13; TEMP 36.8; O2SAT 100
--- NOTE | 2024-05-13 05:56 | ECG_ITS ---
Test Date: 2024-05-13 06:11:20 Measurements Intervals [place] Rate: 84 P: 59 [place]: 156 QRS: 13 QRSD: 96 T: 37 QT: 340 QTc: 402 Interpretive Statements SINUS RHYTHM EARLY PRECORDIAL R/S TRANSITION LOW QRS VOLTAGE IN PRECORDIAL LEADS CONSIDER INFERIOR INFARCT, AGE INDETERMINATE BASELINE ARTIFACT- I, II, III, AVR, AVL, AVF, V1-V6 ABNORMAL ECG Compared to ECG 02/13/2024 15:11:21 No significant changes Electronically Signed On 05-13-2024 06:47:46 CDT by Nilson De La Rosa D.O.
[2024-05-13 06:08] VITALS: PULSE 87; O2SAT 100
[2024-05-13 06:13] LABS: Basophils Absolute Auto 0.1 K/mm3 (0.0-0.1); Basophils Percent Auto 0.9 % (0.2-1.2); Eosinophils Absolute Auto 0.1 K/mm3 (0-0.3); Eosinophils Percent Auto 0.9 % (0-4.4); Hemoglobin 13.1 g/dL (12.0-15.0); Immature Granulocyte Absolute 0.03 K/mm3 (0.00-0.031); Immature Granulocyte Percent A 0.4 % (0-0.5); Lymphocytes Absolute Auto 1.45 K/mm3 (0.9-3.2); Mean Corpuscular HGB Conc 32.8 g/dl (32-36); Mean Corpuscular Hemoglobin 29.8 pg (26-34); Mean Corpuscular Volume 91.1 fl (80-100); Mean Platelet Volume 8.6 fl (7.4-10.4); Monocytes Absolute Auto 0.6 K/mm3 (0.1-0.6); Monocytes Percent Auto 8.1 % (2.6-8.5); Neutrophils Absolute Auto 5.4 K/mm3 (1.3-6.7); Neutrophils Percent Auto 70.7 % (45.5-73.1); Platelet Count Result 467 k/mm3 (150-375); Red Blood Count 4.39 M/mm3 (4.2-5.4); Red Cell Distribution Width 12.8 % (11.5-14.5); White Blood Count 7.7 K/mm3 (4.5-10.0)
[2024-05-13] MEDS: ASPIRIN 81 MG CHEWABLE TABLET 324 MG PO (06:20)
[2024-05-13 06:22] LABS: Alanine Aminotransferase 14 U/L (6-35); Albumin Level 4.3 g/dL (3.5-5.1); Alkaline Phosphatase 66 U/L (38-126); Anion Gap 6 mmol/L (4-12); Aspartate Amino Transferase 20 U/L (14-36); Bilirubin,Total 0.5 mg/dL (0.2-1.3); Blood Urea Nitrogen 16 mg/dL (7-17); Calcium 9.2 mg/dL (8.4-10.2); Carbon Dioxide 27 mmol/L (22-30); Chloride 104 mmol/L (98-107); Estimated CRCL calculation 72 ml/min; Estimated Glomerular Filt Rate 58; Glucose 95 mg/dL (65-110); Lipase 123 U/L (23-300); Potassium 4.4 mmol/L (3.4-5.0); Sodium 137 mmol/L (137-145)
[2024-05-13 06:24] LABS: Prothrombin Time 14.1 Seconds (11.1-14.7)
[2024-05-13 06:25] LABS: Partial Thromboplastin Time 28.5 Seconds (22.3-36.8)
[2024-05-13 06:34] LABS: Troponin I < 0.012 ng/mL (0.000-0.034)
[2024-05-13 07:10] VITALS: PULSE 76; RESP 20; O2SAT 100
--- NOTE | 2024-05-13 07:29 | PC.NURSE ---
Pt states approx 30 min ago, all pain has subsided. States she felt her anxiety increase and she thinks all her symptoms were related to that. Pt in NAD at this time, resting comfortably in bed, no other complaints or requests.
--- NOTE | 2024-05-13 07:50 | ED.CHESTPAIN ---
HPI - Chest Pain General Chief Complaint: Chest Pain Stated Complaint: chest tightness Time Seen by Provider: 05/13/24 06:56 Source: patient Mode of arrival: ambulatory Limitations: no limitations History of Present Illness HPI narrative: This is a 53-year-old female, with history of hypertension and anxiety, presents emergency department complaining of diffuse chest tightness for the past 12 hours. The patient states the past few days, she has had upper respiratory congestion symptoms of cold. This progressed cough yesterday without sputum. The tightness is aggravated by cough without any known alleviating factors. She denies shortness of breath, weakness loss of consciousness and has no other acute complaints at this time. Related Data Home Medications Medication Instructions Recorded Confirmed medroxyprogesterone 150 mg/mL 150 mg IM [id number] 08/11/19 07/03/23 intramuscular suspension (Depo-Provera) ergocalciferol (vitamin D2) 1,250 50,000 unit PO WEEKLY 03/09/23 07/03/23 mcg (50,000 unit) capsule (Vitamin D2) calcium carb-vitamin D3 ER 600 mg 1 tablet PO DAILY 06/22/23 07/03/23 (1,500 mg)-500 unit tablet,ER 24 hr Allergies Allergy/AdvReac Type Severity Reaction Status Date / Time nitrofurantoin Allergy Severe Dyspnea / Verified 05/13/24 05:50 SOB/ VOMITING codeine Allergy Unknown Nausea and Verified 05/13/24 05:50 Vomiting hydrocodone Allergy Unknown Nausea and Verified 05/13/24 05:50 Vomiting morphine Allergy Unknown Redness of Verified 05/13/24 05:50 Skin Sulfa (Sulfonamide Allergy Unknown RASH Verified 05/13/24 05:50 Antibiotics) sulfanilamide Allergy Unknown Nausea and Verified 05/13/24 05:50 Vomiting trimethoprim Allergy Dyspnea / Verified 05/13/24 05:50 SOB NAIL HEBREW REMOVER Allergy Severe ITCHING Uncoded 05/13/24 05:50 AND RASH CONFIRMED 02/21/08 Review of Systems Review of Systems: All systems reviewed & are unremarkable except as noted in HPI and below PMFSH Past Medical History Medical History Anxiety Depression, major, recurrent, in partial remission GERD (gastroesophageal reflux disease) Panic attacks Scalp cyst Unspecified asthma, uncomplicated Vitamin D deficiency Surgical History Surgical History Hx of abdominoplasty [place] teeth extracted Family History Family History Grandparent Heart disease Cerebrovascular accident Cancer Mother Hypertension Arthritis Sibling Hypertension Social History Social History Smoking packs per day: 1 Smoking cigarettes per day: 20.0 Years smoked: 23 Smoking pack-years: 23.00 Smoking status: Former smoker Second hand tobacco smoke exposure: No Smoking end date: 08/17/13 Alcohol intake: current Alcohol use details: Socially Substance use: never Substance use type: does not use Lack of Transportation: No Lack of Food: Never True Current Housing: I Have Housing Concerned About Future Housing: No Difficulty Paying Gas/Electric Bills: No Difficulty Paying for Meds: No Currently Unemployed: No Education: High School Diploma/GED Difficulty w/ Childcare or Family Care: No Living arrangements: alone Occupation/Education: occupation Gender identity (if verbalized by the patient): Female Agree to blood products: Yes Exam Narrative: GENERAL: Well-developed, well-nourished, and in no acute distress. HEAD: Normocephalic, atraumatic. EYES: PERRLA and EOMI. NECK: Supple. No adenopathy or masses. No JVD CHEST: Clear to auscultation. No respiratory distress. No wheezes rales or rhonchi HEART: Regular rate and rhythm. No murmur heard. Normal peripheral pulses. ABDOMEN: Soft, nontender, nondistended, heidi
[2024-05-13 08:17] VITALS: BP 157/98; PULSE 71; RESP 20; TEMP 36.9; O2SAT 98
== END 2024-05-13 08:18 | disposition home or self-care (01) ==
LOC: ANHED 08:09
PROVIDERS: Student in an Organized Health Care Education/Training Program; Emergency Provider Preventive Medicine Aerospace Medicine; PCP Nurse Practitioner Family
DX: M94.0 Chondrocostal junction syndrome [Tietze] (principal); R07.89 Other chest pain; I10 Essential (primary) hypertension; F41.8 Other specified anxiety disorders; E55.9 Vitamin D deficiency, unspecified; K21.9 Gastro-esophageal reflux disease without esophagitis; Z87.891 Personal history of nicotine dependence
CPT/HCPCS: 36415; 71046; 80053; 83690; 84484; 85025; 85610; 85730; 93005; 99284; A9270

== ENCOUNTER 2024-06-17 08:27 | Outpatient (CLI) | payer OTHER, SELFPAY ==
[2024-06-17 14:46] LABS: Cholesterol 186 mg/dL (0-200); HDL Direct 46 mg/dL; Triglycerides 47 mg/dL (<150)
[2024-06-17 14:57] LABS: LDL Cholesterol Direct 106 mg/dL
[2024-06-17 15:05] LABS: Thyroid Stimulating Hormone Reflex 0.331 uIU/mL (0.465-4.68)
[2024-06-17 15:29] LABS: Hemoglobin A1C 5.4 % (<5.7)
[2024-06-17 20:57] LABS: Free T4 Free Thyroxine Reflex 1.24 ng/dL (0.78-2.19)
== END 2024-06-17 08:28 | disposition home or self-care (01) ==
LOC: ANHGOSHLAB 08:28
PROVIDERS: PCP Nurse Practitioner Family; Visit Provider Nurse Practitioner Family
DX: Z00.00 Encounter for general adult medical examination without abnormal findings (principal); R73.01 Impaired fasting glucose; Z13.220 Encounter for screening for lipoid disorders
CPT/HCPCS: 36415; 80061; 83036; 84439; 84443; 84480

== ENCOUNTER 2024-07-07 07:30 | Outpatient (CLI) | payer OTHER, SELFPAY ==
[2024-07-07 11:07] LABS: Vitamin D 25 Hydroxy 68.9 ng/mL
== END 2024-07-07 07:31 | disposition home or self-care (01) ==
PROVIDERS: PCP Nurse Practitioner Family; Visit Provider Obstetrics & Gynecology Gynecology
DX: E55.9 Vitamin D deficiency, unspecified (principal)
CPT/HCPCS: 36415; 82306

== ENCOUNTER 2025-03-08 15:31 | Outpatient (CLI) | payer OTHER, SELFPAY | END 2025-03-08 15:32 | disposition home or self-care (01) | PROVIDERS: PCP Nurse Practitioner Family; Visit Provider Nurse Practitioner | DX: E55.9 Vitamin D deficiency, unspecified (principal) | CPT/HCPCS: 36415; 82306 ==

== ENCOUNTER 2025-04-15 04:19 | Emergency (ER) | payer OTHER, SELFPAY ==
--- NOTE | ~2025-04-15 | XR_ITS ---
EXAMINATION: XR chest 2V, 04/15/2025 4:48 CDT HISTORY: chest pain COMPARISON: No comparisons available. Technique: 2 views obtained. Findings: The lungs are clear, no effusion. No pneumothorax. Heart is normal size. Mediastinal and hilar contours are within normal limits. Bony thorax no acute abnormality. Impression: No acute cardiopulmonary abnormality. Reviewed, dictated and finalized at location A. Impression: No acute cardiopulmonary abnormality.
--- NOTE | 2025-04-15 04:21 | ECG_ITS ---
Test Date: 2025-04-15 04:27:36 Measurements Intervals [place] Rate: 81 P: 52 [place]: 149 QRS: 13 QRSD: 71 T: 23 QT: 327 QTc: 381 Interpretive Statements SINUS RHYTHM WITH SINUS ARRHYTHMIA CONSIDER RIGHT VENTRICULAR CONDUCTION DELAY LOW QRS VOLTAGE IN PRECORDIAL LEADS CONSIDER INFERIOR INFARCT, AGE INDETERMINATE BASELINE ARTIFACT- I, II, III, AVR, AVL, AVF, V1-V6 ABNORMAL ECG Compared to ECG 05/13/2024 06:11:20 NO SIGNIFICANT CHANGE Electronically Signed On 04-15-2025 08:14:55 CDT by Nilson De La Rosa D.O.
[2025-04-15 04:23] VITALS: BP 128/76; PULSE 85; RESP 20; TEMP 36.4; O2SAT 99
[2025-04-15 04:30] VITALS: PULSE 85; O2SAT 98
[2025-04-15] MEDS: ASPIRIN 81 MG CHEWABLE TABLET 324 MG PO (04:35)
[2025-04-15 04:38] LABS: Hematocrit 39.9 % (37.0-47.0); Hemoglobin 13.2 g/dL (12.0-15.0); Immature Granulocyte Percent A 0.4 % (0-0.5); Lymphocytes Absolute Auto 1.50 K/mm3 (0.9-3.2); Mean Corpuscular HGB Conc 33.1 g/dl (32-36); Mean Corpuscular Hemoglobin 29.6 pg (26-34); Mean Corpuscular Volume 89.5 fl (80-100); Nucleated Red Blood Cells Absolute Auto 0.000 K/mm3 (0.0-0.012); Nucleated Red Blood Cells Perc 0.0 % (0.0-0.2); Platelet Count Result 399 k/mm3 (150-375); Red Blood Count 4.46 M/mm3 (4.2-5.4); White Blood Count 6.9 K/mm3 (4.5-10.0)
[2025-04-15 05:04] LABS: Alanine Aminotransferase 16 U/L (6-35); Albumin Level 4.1 g/dL (3.5-5.1); Alkaline Phosphatase 68 U/L (38-126); Anion Gap 11 mmol/L (4-12); Aspartate Amino Transferase 21 U/L (14-36); Bilirubin,Total 0.4 mg/dL (0.2-1.3); Blood Urea Nitrogen 12 mg/dL (7-17); Calcium 9.0 mg/dL (8.4-10.2); Carbon Dioxide 22 mmol/L (22-30); Chloride 102 mmol/L (98-107); Estimated CRCL calculation 79 ml/min; Estimated Glomerular Filt Rate > 60; Glucose 99 mg/dL (65-110); Lipase 116 U/L (23-300); Potassium 4.0 mmol/L (3.4-5.0); Sodium 135 mmol/L (137-145); Total Protein 7.1 g/dL (6.3-8.2)
[2025-04-15 05:10] LABS: INR 1.0; Prothrombin Time 13.6 Seconds (11.1-14.7)
[2025-04-15 05:11] LABS: Partial Thromboplastin Time 28.4 Seconds (22.3-36.8)
[2025-04-15 05:13] LABS: Troponin I < 0.012 ng/mL (0.000-0.034)
[2025-04-15 05:29] VITALS: BP 130/85; PULSE 79; RESP 17; O2SAT 99
--- NOTE | 2025-04-15 06:18 | ED.GENADULT ---
HPI - General Adult General Chief complaint: Chest Pain Stated complaint: chest tightness Time Seen by Provider: 04/15/25 04:25 History of Present Illness HPI narrative: This is a 54-year-old female presenting to the ED with chest pain. Patient developed palpitations and chest tightness overnight. It did not go away so she came to the hospital to be evaluated. The tightness is in the center of her chest, nonradiating. She has had pain like this before with negative workups in his shoulders dehydration or anxiety. Is not associated with vomiting, diaphoresis or exertion. Chest pain resolved on its own when she reach emergency department. She denies fevers shortness of breath abdominal pain urinary symptoms or lower extremity edema. Related Data Home Medications ?Medication ?Instructions ?Recorded ?Confirmed ?Last Taken ?Type medroxyprogesterone 150 mg/mL 150 mg IM [id number] 08/11/19 06/15/24 05/22/23 History intramuscular suspension (Depo-Provera) calcium carb-vitamin D3 ER 600 mg 1 tablet PO DAILY 06/22/23 06/15/24 07/02/23 History (1,500 mg)-500 unit tablet,ER 24 hr Allergies Allergy/AdvReac Type Severity Reaction Status Date / Time nitrofurantoin Allergy Severe Dyspnea / Verified 06/15/24 08:57 SOB/ VOMITING codeine Allergy Unknown Nausea and Verified 06/15/24 08:57 Vomiting hydrocodone Allergy Unknown Nausea and Verified 06/15/24 08:57 Vomiting morphine Allergy Unknown Redness of Verified 06/15/24 08:57 Skin Sulfa (Sulfonamide Allergy Unknown RASH Verified 06/15/24 08:57 Antibiotics) sulfanilamide Allergy Unknown Nausea and Verified 06/15/24 08:57 Vomiting trimethoprim Allergy Dyspnea / Verified 06/15/24 08:57 SOB NAIL ISRAELI REMOVER Allergy Severe ITCHING Uncoded 06/15/24 08:57 AND RASH CONFIRMED 02/21/08 PMFSH Past Medical History Medical History Essential hypertension Nonerosive esophageal reflux disease (~06/2023) Panic attacks Scalp cyst GERD (gastroesophageal reflux disease) Anxiety Depression, major, recurrent, in partial remission Unspecified asthma, uncomplicated Vitamin D deficiency Surgical History Surgical History [place] teeth extracted Hx of abdominoplasty Family History Family History Grandparent Heart disease Cerebrovascular accident Cancer Mother Hypertension Arthritis Sibling Hypertension Social History Social History Smoking packs per day: 1 Smoking cigarettes per day: 20.0 Years smoked: 23 Smoking pack-years: 23.00 Smoking status: Former smoker Second hand tobacco smoke exposure: No Smoking end date: 08/17/13 Alcohol intake: current Alcohol use details: Socially Substance use: never Substance use type: does not use Lack of Transportation: No Lack of Food: Never True Current Housing: I Have Housing Concerned About Future Housing: No Difficulty Paying Gas/Electric Bills: No Difficulty Paying for Meds: No Currently Unemployed: No Education: High School Diploma/GED Difficulty w/ Childcare or Family Care: No Living arrangements: alone Occupation/Education: occupation Gender identity (if verbalized by the patient): Female Agree to blood products: Yes Exam Narrative: APPEARANCE: No apparent distress. Head: atraumatic. EYES: EOMI, NOSE: Atraumatic NECK: Trachea midline RESPIRATORY: No increased rate of breathing clear to auscultation CARDIOVASCULAR: RRR, no peripheral edema ABDOMINAL: Non-distended soft nontender MUSCULOSKELETAl: No obvious deformities NEURO: Alert. Moving 4/4 extremities SKIN:: Warm, dry. Normal color PSYCHIATRIC: Normal affect Course Vital Signs Vital signs: Vital Signs Temperature 97.5 F L 04/15/25 04:23 Pulse Rate 85 04/15/25 04:23 Respiratory Rate 20 04/15/25 04:23 Blood Pressure 128/76 04/15/25 04:23 Pulse Oximetry 99 04/15/25 04:23 Oxygen Delivery Room Air 04/15/25 04:23 Temperature 97.5 F L 04/15/25 04:23 Pulse Rate 74 04/15/25 09:22 Respiratory Rate 16 04/15/25 09:22 Blood Pressure 163/88 H 04/15/25 09:22 Pulse Oximetry 100 04/15/25 09:22 Oxygen Delivery Room Air 04/15/25 04:30 Medical Decision Making MDM Narrative Medical decision making narrative: -Course: 54-year-old female presenting with chest pain. Chest pain has since resolved. Patient's EKGs and labs are reviewed without significant high risk changes. Cardiac risk factors reviewed. Heart score is <4 and it is reasonable for further risk stratification to be performed as outpatient. Pain was not sudden or maximal onset not tearing or ripping quality. No other signs or symptoms suggest aortic dissection. A low risk Wells criteria is noted. PE is felt to be unlikely. No pneumonia seen on evaluation today. Patient is felt to be reasonable candidate for continued evaluation as an outpatient. -DDX includes but is not limited to: ACS, pneumonia pneumothorax, anxiety PE Vital Signs Vital Signs: Vital Signs Temperature 97.5 F L 04/15/25 04:23 Pulse Rate 85 04/15/25 04:23 Respiratory Rate 20 04/15/25 04:23 Blood Pressure 128/76 04/15/25 04:23 Pulse Oximetry 99 04/15/25 04:23 Oxygen Delivery Room Air 04/15/25 04:23 Temperature 97.5 F L 04/15/25 04:23 Pulse Rate 74 04/15/25 09:22 Respiratory Rate 16 04/15/25 09:22 Blood Pressure 163/88 H 04/15/25 09:22 Pulse Oximetry 100 04/15/25 09:22 Oxygen Delivery Room Air 04/15/25 04:30 Lab Data 04/15/25 04:32 04/15/25 04:32 Labs: Lab Results 04/15/25 04/15/25 Range/Units 04:32 07:29 WBC 6.9 (4.5-10.0) K/mm3 RBC 4.46 (4.2-5.4) M/mm3 Hgb 13.2 (12.0-15.0) g/dL Hct 39.9 (37.0-47.0) % MCV 89.5 (80-100) fl MCH 29.6 (26-34) pg MCHC 33.1 (32-36) g/dl RDW 12.8 (11.5-14.5) % Plt Count 399 H (150-375) k/mm3 MPV 8.2 (7.4-10.4) fl Immature Gran % (Auto) 0.4 (0-0.5) % Neut % (Auto) 69.0 (45.5-73.1) % Lymph % (Auto) 21.7 (18.3-44.2) % Moffat % (Auto) 7.2 (2.6-8.5) % Eos % (Auto) 0.7 (0-4.4) % Baso % (Auto) 1.0 (0.2-1.2) % Lymph # (Auto) 1.50 (0.9-3.2) K/mm3 Moffat # (Auto) 0.5 (0.1-0.6) K/mm3 Eos # (Auto) 0.1 (0-0.3) K/mm3 Baso # (Auto) 0.1 (0.0-0.1) K/mm3 Abs Immat Gran (auto) 0.03 (0.00-0.031) K/mm3 Absolute Neuts (auto) 4.8 (1.3-6.7) K/mm3 Absolute Nucleated RBC 0.000 (0.0-0.012) K/mm3 Nucleated RBC % 0.0 (0.0-0.2) % PT 13.6 (11.1-14.7) Seconds INR 1.0 APTT 28.4 (22.3-36.8) Seconds Sodium 135 L (137-145) mmol/L Potassium 4.0 (3.4-5.0) mmol/L Chloride 102 (98-107) mmol/L Carbon Dioxide 22 (22-30) mmol/L Anion Gap 11 (4-12) mmol/L BUN 12 (7-17) mg/dL Creatinine 0.91 (0.7-1.0) mg/dL Estim Creat Clear Calc 79 ml/min Estimated GFR > 60 (59 - ) Glucose 99 (65-110) mg/dL Calcium 9.0 (8.4-10.2) mg/dL Total Bilirubin 0.4 (0.2-1.3) mg/dL AST 21 (14-36) U/L ALT 16 (6-35) U/L Alkaline Phosphatase 68 (38-126) U/L Troponin I < 0.012 0.015 D (0.000-0.034) ng/mL Total Protein 7.1 (6.3-8.2) g/dL Albumin 4.1 (3.5-5.1) g/dL Lipase 116 (23-300) U/L Discharge Plan Discharge Clinical Impression: Chest pain Patient Disposition: Home Condition: Stable Instructions: Antibiotic Form, Chest Pain (ED) Additional Instructions: You seen in the emergency department for chest pain. Your workup was reassuring. You are not having a heart attack. It is unclear on what exactly is causing your pain but please follow-up with the security escort listed below for further management. If you develop any new or worsening symptoms you can return to ED at any time for re-evaluation. Patient Language: Ukrainian Prescriptions: No Action medroxyprogesterone [Depo-Provera] 150 mg/mL Suspension 150 mg IM [id number] calcium carbonate-vitamin D3 600 mg(1,500mg) -500 unit Tablet Extended Release 24 Hr 1 tablet PO DAILY omeprazole 40 mg capsule,delayed release(DR/EC) 40 mg PO DAILY Qty: 90 1RF bupropion HCl 200 mg tablet sustained-release 12 hr 200 mg PO BID Qty: 60 1RF cholecalciferol (vitamin D3) 25 mcg (1,000 unit) capsule 25 mcg PO DAILY Qty: 90 1RF hydrochlorothiazide 12.5 mg capsule 12.5 mg PO DAILY Qty: 90 1RF bupropion HCl 150 mg tablet sustained-release 12 hr 150 mg PO BID Qty: 180 1RF buspirone 15 mg tablet See Rx Instructions .ROUTE .COMPLEX Qty: 60 5RF Dose Instruction: TAKE 1 TABLET BY MOUTH TWICE DAILY Rx Instructions: TAKE 1 TABLET BY MOUTH TWICE DAILY diclofenac sodium 50 mg tablet,delayed release (DR/EC) See Rx Instructions .ROUTE .COMPLEX Qty: 180 1RF Dose Instruction: TAKE 1 TABLET BY MOUTH TWICE DAILY Rx Instructions: TAKE 1 TABLET BY MOUTH TWICE DAILY lisinopril 20 mg tablet See Rx Instructions .ROUTE .COMPLEX Qty: 90 1RF Dose Instruction: TAKE 1 TABLET BY MOUTH DAILY Rx Instructions: TAKE 1 TABLET BY MOUTH DAILY Follow-up/Referrals: Jassi Park MD [Physician, Cardiology] - 1 Week Haleigh Schaefer NP [Primary Care Provider, Family Practice]
[2025-04-15 06:41] VITALS: BP 140/82; PULSE 72; RESP 12; O2SAT 100
--- NOTE | 2025-04-15 07:37 | ECG_ITS ---
Test Date: 2025-04-15 07:41:28 Measurements Intervals [place] Rate: 74 P: 51 PA: 151 QRS: 6 QRSD: 96 T: 9 QT: 358 QTc: 398 Interpretive Statements SINUS RHYTHM INCOMPLETE RIGHT BUNDLE BRANCH BLOCK LOW QRS VOLTAGE IN PRECORDIAL LEADS CONSIDER INFERIOR INFARCT, AGE INDETERMINATE BASELINE ARTIFACT- I, II, III, AVR, AVL, AVF ABNORMAL ECG Compared to ECG 04/15/2025 04:27:36 NO SIGNIFICANT CHANGE Electronically Signed On 04-15-2025 08:16:27 CDT by Nilson De La Rosa D.O.
[2025-04-15 08:03] LABS: Troponin I 0.015 ng/mL (0.000-0.034)
[2025-04-15 08:25] VITALS: BP 162/93; PULSE 73; RESP 19; O2SAT 100
[2025-04-15 09:22] VITALS: BP 163/88; PULSE 74; RESP 16; O2SAT 100
== END 2025-04-15 09:24 | disposition home or self-care (01) ==
PROVIDERS: Emergency Provider Emergency Medicine; PCP Nurse Practitioner Family
DX: R07.89 Other chest pain (principal); I10 Essential (primary) hypertension; J45.909 Unspecified asthma, uncomplicated; K21.9 Gastro-esophageal reflux disease without esophagitis; F41.9 Anxiety disorder, unspecified; F33.41 Major depressive disorder, recurrent, in partial remission; E55.9 Vitamin D deficiency, unspecified; Z87.891 Personal history of nicotine dependence; Z79.899 Other long term (current) drug therapy; R94.31 Abnormal electrocardiogram [ECG] [EKG]; I45.10 Unspecified right bundle-branch block
CPT/HCPCS: 36415; 71046; 80053; 83690; 84484; 85025; 85610; 85730; 93005; 99284; A9270

== ENCOUNTER 2025-06-16 09:54 | Outpatient (CLI) | payer OTHER, SELFPAY ==
[2025-06-16 14:21] LABS: Hematocrit 40.5 % (37.0-47.0); Hemoglobin 13.2 g/dL (12.0-15.0); Immature Granulocyte Percent A 0.4 % (0-0.5); Lymphocytes Absolute Auto 1.29 K/mm3 (0.9-3.2); Mean Corpuscular HGB Conc 32.6 g/dl (32-36); Mean Corpuscular Hemoglobin 29.3 pg (26-34); Mean Corpuscular Volume 90.0 fl (80-100); Nucleated Red Blood Cells Absolute Auto 0.000 K/mm3 (0.0-0.012); Nucleated Red Blood Cells Perc 0.0 % (0.0-0.2); Platelet Count Result 464 k/mm3 (150-375); Red Blood Count 4.50 M/mm3 (4.2-5.4); White Blood Count 8.2 K/mm3 (4.5-10.0)
[2025-06-16 14:25] LABS: Alanine Aminotransferase 15 U/L (6-35); Albumin Level 4.1 g/dL (3.5-5.1); Alkaline Phosphatase 72 U/L (38-126); Anion Gap 9 mmol/L (4-12); Aspartate Amino Transferase 26 U/L (14-36); Bilirubin,Total 0.5 mg/dL (0.2-1.3); Blood Urea Nitrogen 13 mg/dL (7-17); Calcium 9.0 mg/dL (8.4-10.2); Carbon Dioxide 24 mmol/L (22-30); Chloride 97 mmol/L (98-107); Cholesterol 190 mg/dL (0-200); Estimated Glomerular Filt Rate 57; Glucose 79 mg/dL (65-110); HDL Direct 50 mg/dL; Potassium 4.2 mmol/L (3.4-5.0); Sodium 130 mmol/L (137-145); Total Protein 7.0 g/dL (6.3-8.2); Triglycerides 46 mg/dL (<150)
[2025-06-16 15:06] LABS: Thyroid Stimulating Hormone Reflex 0.530 uIU/mL (0.465-4.68)
[2025-06-16 15:31] LABS: Hemoglobin A1C 5.0 % (<5.7)
== END 2025-06-16 09:55 | disposition home or self-care (01) ==
LOC: ANHGOSHLAB 09:55
PROVIDERS: PCP Nurse Practitioner Family; Visit Provider Nurse Practitioner Family
DX: E11.9 Type 2 diabetes mellitus without complications (principal); I10 Essential (primary) hypertension; E78.5 Hyperlipidemia, unspecified; E03.9 Hypothyroidism, unspecified
CPT/HCPCS: 36415; 80053; 80061; 83036; 84443; 85025

== ENCOUNTER 2025-06-23 07:20 | Outpatient (CLI) | payer OTHER, SELFPAY ==
--- NOTE | ~2025-06-23 | MM_ITS ---
EXAMINATION: MM screening shandra BI w neel HISTORY: Screening TECHNIQUE: Craniocaudal and mediolateral oblique 3-D tomosynthesis images were obtained and synthetic 2-D images were generated. CAD analysis was submitted and interpreted. COMPARISON: Comparison to multiple prior studies sequentially, with oldest reviewed study dated 11/06/2018. BREAST PARENCHYMAL COMPOSITION: Not Dense: The breasts are almost entirely fatty. FINDINGS: There is no evidence of suspicious mass, calcification, or architectural distortion to suggest malignancy in either breast. There has been no suspicious interval change. IMPRESSION: 1. No mammographic evidence of malignancy. 2. Recommend routine screening mammography in one year. BI-RADS Category 1: Negative Reviewed, dictated and finalized at location O. POT OPERATOR AND TENDER
--- NOTE | ~2025-06-23 | DEXA_ITS ---
Bone Density Report Name: BRUNILDA HELTON Age: 54 Sex: Female Ethnicity: White Date of : 1970 Indication: screening for osteoporosis; Referring Provider: CAMILLE, DEV Study: Bone densitometry was performed. Exam Date: June 23, 2025 Accession number: [id number] Bone Density: Region BMD T-score Z-score Classification AP Spine(L1-L4) 1.146 0.9 1.8 Normal Femoral Neck (Left) 0.771 -0.7 0.2 Normal Total Hip (Left) 0.889 -0.4 0.1 Normal Femoral Neck (Right) 0.739 -1.0 -0.1 Normal Total Hip (Right) 0.883 -0.5 0.1 Normal Total Hip Mean 0.886 -0.5 0.1 Normal World Health Organization criteria for BMD impression classify patients as: Normal (T-score at or above -1.0), Osteopenia (T-score between -1.0 and -2.5), or Osteoporosis (T-score at or below -2.5). 10-year Fracture Risk: FRAX not reported because: All T-scores for Spine Total, Hip Total, Femoral Neck at or above -1.0 Previous Exams: Region Exam Age BMD T-score BMD Change BMD Change Date g/cm2 vs Baseline vs Previous AP Spine (L1-L4) 06/23/2025 54 1.146 0.9 0.033 (3.0%)* -0.070 (-5.8%) 01/01/2022 51 1.216 1.5 0.103 (9.3%)* 0.103 (9.3%)* 10/31/2017 47 1.113 0.6 Total Hip(Left) 06/23/2025 54 0.889 -0.4 -0.067 (-7.0%) -0.036 (-3.9%) 01/01/2022 51 0.925 -0.1 -0.031 (-3.2%) -0.031 (-3.2%) 10/31/2017 47 0.956 0.1 Total Hip(Right) 06/23/2025 54 0.883 -0.5 -0.068 (-7.1%) -0.038 (-4.1%) 01/01/2022 51 0.920 -0.2 -0.030 (-3.1%) -0.030 (-3.1%) 10/31/2017 47 0.950 0.1 *Denotes significance at 95% confidence level, LSC for AP Spine = 0.022 g/cm2, LSC for Total Hip = 0.027 g/cm2 Impression: The patient's bone mass is within expected range for age, gender and ethnicity. The BMD for the AP Spine (L1-L4) decreased, changing by -5.8% since the last DXA exam. The BMD for the Total Hip(Left) decreased, changing by -3.9% since the last DXA exam. The BMD for the Total Hip(Right) decreased, changing by -4.1% since the last DXA exam. Discussion: BONE DENSITY IS WITHIN EXPECTED LIMITS FOR AGE, SEX AND RACE. Bone density is within expected limits for age, sex and race at all sites measured. The patient should follow a healthful lifestyle (good nutrition with adequate calcium and vitamin D, and appropriate weight-bearing exercise). Follow-Up: Consider repeating this study in 3 to 4 years to reassess this patient's status, or sooner if there is some new clinical indication. Reported by: SERGIO on 06/23/2025 8:05:00 AM. Reviewed, dictated and finalized at location A.
--- OUTSIDE RECORDS SUMMARY | 2025-06-23 07:23 | XMS_ITS | Patient Health Record ---
Author Organization [facility] [employer] Address [address] [place] [address] Care Team Providers Care Bending Shed Worker Name Role Phone Haleigh Orellana Primary Care Provider Estrella Pardo Unavailable [phone] Allergies Allergen (clinical drug ingredient) Drug/Non Drug Allergy documented on EMR Reaction Allergy Type Onset Date Status Nail zimbabwean remover nail zimbabwean remover (uncoded) Unknown Allergy Active codeine Codeine Unknown Drug Allergy Active hydrocodone HYDROcodone Unknown Drug Allergy Act harry morphine Morphine Unknown Drug Allergy Active nitrofurantoin Nitrofurantoin Unknown Drug Allergy Active Substance with sulfonamide structure and antibacterial mechanism of action (substance) Sulfa Antibiotics Unknown Drug Allergy Active sulfanilamide Sulfanilamide Unknown Drug Allergy Active trimethoprim Trimethoprim Unknown Drug Allergy A ctive Results Component Value Reference Range Notes UDT Reviewed date:04/12/2025 07:58:08 AM Interpretation: Performing Lab: Notes/Report: Amphetamine (AMP) n 0 - 1000 ng/ml Buprenorphine (BUP) n 0 - 10 ng/ml Oxazepam (BZO) n 0 - 300 ng/ml Cocaine (ARSH) n 0 - 300 ng/ml Methamphetamine (mAMP) n 0 - 300 ng/ml Methylenedioxymethamphetamine (MDMA) n 0 - 500 ng/ml Morphine (MOP) n 0 - 25 ng/ml Methadone (MTD) n 0 - 300 ng/ml Oxycodone (OXY) n 0 - 300 ng/ml THC n 0 - 50 ng/ml x n 0 - 1000 ng/ml x n 0 - 1000 ng/ml x n 0 - 300 ng/ml x n 0 - 300 ng/ml Reason For Referral No Information Medications Medication SIG (Take, Route, Frequency, Duration) Notes Start Date End Date Status Vitamin D2 50 MCG (1999) Tablet 1 tablet Orally Once a day; Duration: 30 day(s) Active Omeprazole 40 MG Capsule Delayed Release 1 capsule 1/2 to 1 hour before morning meal Orally Once a day; Duration: 30 day(s) Active Calcium 600 MG Tablet 1 tablet with meal s Orally Twice a day; Duration: 30 day(s) Active Lisinopril 20 MG Tablet 1 tablet Orally Once a day; Duration: 30 day(s) Active busPIRone HCl 15 MG Tablet 1 tablet Oral ly Twice a day; Duration: 90 days Active buPROPion HCl ER (SR) 200 MG Tablet Extended Release 12 Hour TAKE 1 TABLET BY MOUTH TWICE DAILY Oral; Duration: 90 days Active Social History Tobacco Use: Social History Observation Description Date Details (start date - stop date) Former Smoker NA - 06/18/2014 Sex Assigned At : Social History Observation Description Sex Assigned At Female Social History Social History Social Info Question Answer Notes Household: Marital Status: Single Drug/Alcohol: Social Info Question Answer Notes AUDIT-C (Standard) Points 2 Did you have a drink contain ing alcohol in the past year? Yes How often did you have six or more drinks on one occasion in the past year? Less than monthly (1 point) How many drinks did you have on a typical day when you were drinking in the past year? 1 or 2 drinks (0 point) How often did you have a drink containing alcohol in the past year? Monthly or less (1 point) Tobacco Use: Social Info Question Answer Notes Tobacco Control (Standard) Tobacco use: Former smoker When did you stop smoking? 06/18/2014 How long has it been since you last smoked? Greater than 10 years Problems Problem Type SNOMED Code ICD Code Onset Dates Problem Status W/U Status Risk Notes Problem Generalized anxiety disorder (46951839) CY (generalized anxiety disorder) (F41.1) Active confirmed Vital Signs Heart Rate 80 /min 04/11/2025 Height-cm 160.02 cm 04/11/2025 Blood pressure diastolic 87 mm Hg 04/11/2025 Weight-kg 119.21 kg 04/11/2025 Height 63 in 04/11/2025 Blood pressure systolic 136 mm Hg 04/11/2025 Weight 262.8 lbs 04/11/2025 BMI 46.55 kg/m2 04/11/2025 Encounters Encounter Location Date Provider Diagnosis [facility] [address] [place] [address] 04/11/2025 Estrella Rodriguez CY (generalized anxiety disorder) F41.1 Assessments Encounter Date Diagnosis (ICD Code) Assessment Notes Treatment Notes Treatment Clinical Notes Section Notes 04/11/2025 CY (generalized anxiety disorder) (ICD-10 - F41.1) 04/11/2025 Other Stable on current medication regimen, do not recommend changes at this time. -does not need refills today, plans to continue care with PCP to manage refills. Patient educated on all medications including potential benefits, side effects, risks. Educated on proper dosing schedule and importance of compliance. Discussed can follow up as needed or at discretion of PCP. -Assessment and treatment plan reviewed with patient. -Compliance with treatment plan importance discussed. -Discussed the risks/benefits of this medication -Discussed medication side effects. -Contact office if symptoms worsen. -Discussed that it can take up to 6-8 weeks to see full therapeutic effects of psychotropic medications. -Crisis prevention hotline 418. Plan Of Treatment No Information Insurance Providers Payer Name Payer Address Payer Phone Subscriber Number Group Number Insured Name Patient Relationship to Insured Coverage Start Date Coverage End Date [facility] [address] [address] [place] [address] [id number] Anastacia Gray Self - patient is the insured Medical (General) History Medical History History ICD Code Anxiety Depression Essential HTN GERD Panic attacks Unspecified asthma Vit D defieciency Past Psychiatric History: Anxiety Disord er
== END 2025-06-23 07:21 | disposition home or self-care (01) ==
LOC: ANHFOHIMG 07:21
PROVIDERS: PCP Nurse Practitioner Family; Visit Provider Nurse Practitioner
DX: Z12.31 Encounter for screening mammogram for malignant neoplasm of breast (principal); Z78.0 Asymptomatic menopausal state; Z13.820 Encounter for screening for osteoporosis
CPT/HCPCS: 77063; 77067; 77080

== ENCOUNTER 2025-07-06 11:08 | Emergency (ER) | payer OTHER, SELFPAY ==
[2025-07-06 11:09] VITALS: BP 157/93; PULSE 94; RESP 18; TEMP 36.6; O2SAT 100
--- NOTE | 2025-07-06 12:19 | ED_ITS ---
HPI - General Adult General Chief complaint: Unspecified Stated complaint: dehydrated Time Seen by Provider: 07/06/25 12:12 Source: patient Mode of arrival: ambulatory Limitations: no limitations History of Present Illness HPI narrative: 54 YEARS OLD WHITE FEMALE WORKING [employer] IN CAME TO THE ED COMPLAINING OF FEELING DRAINED, TIRED, NO ENERGY SINCE LAST NIGHT PATIENT FEELS DEHYDRATED. THE SYMPTOMS ARE STEADY. ASSOCIATED WITH INSOMNIA. PATIENT IS TELLING ME THAT SHE BEEN HAVING INSOMNIA SINCE HAVING COVID YEARS AGO. HISTORY OF HYPERTENSION, ANXIETY AND DEPRESSION. PATIENT IS STATUS POST CARDIAC CT SCAN WITH IV CONTRAST 2 DAYS AGO. PATIENT DENIES ANY FEVER, CHILLS, NAUSEA, VOMITING, CHEST PAIN, SHORTNESS OF BREATH, BACK PAIN OR ABDOMINAL PAIN OR URINARY SYMPTOMS. PATIENT REPORT EXTRA STRESS LATELY BECAUSE OF THE END OF THE YEAR Related Data Home Medications ?Medication ?Instructions ?Recorded ?Confirmed ?Last Taken ?Type medroxyprogesterone 150 mg/mL 150 mg IM [id number] 08/1106/16/25 05/22/23 History intramuscular suspension (Depo-Provera) calcium carb-vitamin D3 ER 600 mg 1 tablet PO DAILY 06/16/25 07/02/23 History (1,500 mg)-500 unit tablet,ER 24 hr ergocalciferol (vitamin D2) 1,250 1,250 mcg PO WEEKLY 06/16/25 06/16/25 Unknown History mcg (50,000 unit) capsule Allergies Allergy/AdvReac Type Severity Reaction Status Date / Time nitrofurantoin Allergy Severe Dyspnea / Verified 06/16/25 08:52 SOB/ VOMITING codeine Allergy Unknown Nausea and Verified 06/16/25 08:52 Vomiting hydrocodone Allergy Unknown Nausea and Verified 06/16/25 08:52 Vomiting morphine Allergy Unknown Redness of Verified 06/16/25 08:52 Skin Sulfa (Sulfonamide Allergy Unknown RASH Verified 06/16/25 08:52 Antibiotics) sulfanilamide Allergy Unknown Nausea and Verified 06/16/25 08:52 Vomiting trimethoprim Allergy Dyspnea / Verified 06/16/25 08:52 SOB NAIL [place] REMOVER Allergy Severe ITCHING Uncoded 06/16/25 08:52 AND RASH CONFIRMED 02/21/08 Review of Systems 2 Review of Systems: All systems reviewed & are unremarkable except as noted in HPI and below PMFSH Past Medical History Medical History Essential hypertension Nonerosive esophageal reflux disease (~06/2023) Panic attacks Scalp cyst GERD (gastroesophageal reflux disease) Anxiety Depression, major, recurrent, in partial remission Unspecified asthma, uncomplicated Vitamin D deficiency Surgical History Surgical History [place] teeth extracted Hx of abdominoplasty Family History Family History Grandparent Heart disease Cerebrovascular accident Cancer Mother Hypertension Arthritis Sibling Hypertension Social History Social History Smoking packs per day: 1 Smoking cigarettes per day: 20.0 Years smoked: 23 Smoking pack-years: 23.00 Smoking status: Former smoker Second hand tobacco smoke exposure: No Smoking end date: 08/17/13 Alcohol intake: current Alcohol use details: Socially Substance use: never Substance use type: does not use Lack of Transportation: No Lack of Food: Never True Current Housing: I Have Housing Concerned About Future Housing: No Difficulty Paying Gas/Electric Bills: No Difficulty Paying for Meds: No Currently Unemployed: No Education: High School Diploma/GED Difficulty w/ Childcare or Family Care: No Living arrangements: alone Occupation/Education: occupation Gender identity (if verbalized by the patient): Female Agree to blood products: Yes Exam 2 Narrative: GENERAL APPEARANCE: WELL-DEVELOPED, WELL-NOURISHED SKIN: NORMAL COLOR HEAD: NORMOCEPHALIC, NONTRAUMATIC EYES: CLEAR CONJUNCTIVA ENT: OROPHARYNX NORMAL, EARS NORMAL, NOSE NORMAL NECK: SUPPLE, NONTENDER CHEST AND RESPIRATORY: AIRWAY PATENT, NO RESPIRATORY DISTRESS, NO ACCESSORY MUSCLE USE HEART: REGULAR RATE/RHYTHM ABDOMEN: SOFT, NONTENDER, NO ORGANOMEGALY, QUIET BOWEL SOUNDS VASCULAR: NORMAL PERIPHERAL PULSES, NORMAL CAPILLARY REFILL. 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 TESTED, NO GROSS MOTOR DEFICIT Course Vital Signs Vital signs: Vital Signs Temperature 36.6 C 07/06/25 11:09 Pulse Rate 94 07/06/25 11:09 Respiratory Rate 18 07/06/25 11:09 Blood Pressure 157/93 H 07/06/25 11:09 Pulse Oximetry 100 07/06/25 11:09 Oxygen Delivery Room Air 07/06/25 11:09 Temperature 36.6 C 07/06/25 11:09 Pulse Rate 84 07/06/25 12:24 Respiratory Rate 16 07/06/25 12:24 Blood Pressure 162/92 H 07/06/25 12:24 Pulse Oximetry 100 07/06/25 12:24 Oxygen Delivery Room Air 07/06/25 11:09 Medical Decision Making MDM Narrative Medical decision making narrative: PATIENT CAME FEELING WEAK AND TIRED SINCE LAST NIGHT VITAL SIGNS SHOWING BLOOD PRESSURE 157/93 OTHERWISE WITHIN NORMAL LIMIT PHYSICAL EXAMINATION IS UNREMARKABLE DIFFERENTIAL DIAGNOSIS INCLUDE ANXIETY LIKE SYMPTOMS, DEPRESSION, INSOMNIA, HYPOTHYROIDISM, ELECTROLYTE IMBALANCE, DEHYDRATION, URINARY TRACT INFECTION. BLOOD WORKUP TODAY INCLUDES CBC, CMP, TSH SHOWED INSIGNIFICANT ABNORMALITY URINALYSIS POSITIVE FOR NITRATE DIAGNOSIS GENERAL WEAKNESS LIKELY SECONDARY TO URINARY TRACT INFECTION AND DEPRESSION DISCHARGED ON MACROBID. THE PT WAS DISCHARGED TO HOME.THE PT,S CONDITION UPON DISCHARGE WAS FAIR,EDUCATION WAS PROVIDED TO THE PT IN REFERENCE TO THE FINAL IMPRESSION,DISCHARGE STUDY RESULTS,TREATMENT,PROGNOSIS AND NEED FOR FOLLOW UP . Vital Signs Vital Signs: Vital Signs Temperature 36.6 C 07/06/25 11:09 Pulse Rate 94 07/06/25 11:09 Respiratory Rate 18 07/06/25 11:09 Blood Pressure 157/93 H 07/06/25 11:09 Pulse Oximetry 100 07/06/25 11:09 Oxygen Delivery Room Air 07/06/25 11:09 Temperature 36.6 C 07/06/25 11:09 Pulse Rate 84 07/06/25 12:24 Respiratory Rate 16 07/06/25 12:24 Blood Pressure 162/92 H 07/06/25 12:24 Pulse Oximetry 100 07/06/25 12:24 Oxygen Delivery Room Air 07/06/25 11:09 Lab Data 07/06/25 12:30 07/06/25 12:30 Labs: Lab Results 07/06/25 07/06/25 Range/Units 12:30 12:37 WBC 8.4 (4.5-10.0) K/mm3 RBC 4.30 (4.2-5.4) M/mm3 Hgb 12.7 (12.0-15.0) g/dL Hct 39.0 (37.0-47.0) % MCV 90.7 (80-100) fl MCH 29.5 (26-34) pg MCHC 32.6 (32-36) g/dl RDW 13.2 (11.5-14.5) % Plt Count 394 H (150-375) k/mm3 MPV 8.6 (7.4-10.4) fl Immature Gran % (Auto) 0.4 (0-0.5) % Neut % (Auto) 78.1 H (45.5-73.1) % Lymph % (Auto) 14.1 L (18.3-44.2) % [place] % (Auto) 6.7 (2.6-8.5) % Eos % (Auto) 0.2 (0-4.4) % Baso % (Auto) 0.5 (0.2-1.2) % Lymph # (Auto) 1.18 (0.9-3.2) K/mm3 [place] # (Auto) 0.6 (0.1-0.6) K/mm3 Eos # (Auto) 0.0 (0-0.3) K/mm3 Baso # (Auto) 0.0 (0.0-0.1) K/mm3 Abs Immat Gran (auto) 0.03 (0.00-0.031) K/mm3 Absolute Neuts (auto) 6.5 (1.3-6.7) K/mm3 Absolute Nucleated RBC 0.000 (0.0-0.012) K/mm3 Nucleated RBC % 0.0 (0.0-0.2) % Sodium 137 (137-145) mmol/L Potassium 3.6 (3.4-5.0) mmol/L Chloride 107 (98-107) mmol/L Carbon Dioxide 24 (22-30) mmol/L Anion Gap 6 (4-12) mmol/L BUN 9 (7-17) mg/dL Creatinine 0.82 (0.7-1.0) mg/dL Estim Creat Clear Calc 88 ml/min Estimated GFR > 60 (59 - ) Glucose 85 (65-110) mg/dL Calcium 9.0 (8.4-10.2) mg/dL Total Bilirubin 0.5 (0.2-1.3) mg/dL AST 20 (14-36) U/L ALT 14 (6-35) U/L Alkaline Phosphatase 77 (38-126) U/L Total Protein 7.3 (6.3-8.2) g/dL Albumin 4.2 (3.5-5.1) g/dL TSH Pending Urine Color Yellow (Yellow) Urine Appearance Clear (Clear) Urine pH 6.5 (5.0-9.0) Ur Specific [place] 1.017 (1.001-1.035) Urine Protein Negative (Negative) mg/dL Urine Glucose (UA) Negative (Negative) mg/dL Urine Ketones 1+ H (Negative) mg/dL Ur Blood (Man) Trace (Negative) Urine Nitrate Positive H (Negative) Urine Bilirubin Negative (Negative) Urine Urobilinogen 1.0 (<2.0) mg/dL Leukocyte Esterase Rfl 1+ H (Negative) MATA/UL Urine RBC 3-5 H (0-2) /hpf Urine WBC 11-20 H (0-3) /hpf Ur Squamous Epith Cells Occasional (Few) /hpf Urine Bacteria 4+ H /hpf Urine Casts 0-2 POC Urine HCG, Qual Negative (Negative) Critical Care Time Critical Care Time Critical Care Time: No Discharge Plan Discharge Clinical Impression: Tiredness, Urinary tract infection Patient Disposition: Home Condition: Stable Instructions: Antibiotic Form, Urinary Tract Infection in Women (ED), Fatigue (ED) Additional Instructions: RETURN IF SYMPTOMS ARE WORSENING , CALL YOUR FAMILY PHYSICIAN FOR APPOINTMENT, TAKE TYLENOL NEEDED FOR ACHES AND PAIN, CONTINUE HOME MEDICATIONS. Patient Language: [place] Prescriptions: New ciprofloxacin HCl [Cipro] 500 mg tablet 500 mg PO Q12H Qty: 6 0RF No Action medroxyprogesterone [Depo-Provera] 150 mg/mL Suspension 150 mg IM [id number] ergocalciferol (vitamin D2) 1,250 mcg (50,000 unit) capsule 1,250 mcg PO WEEKLY buspirone 15 mg tablet 15 mg PO BID Qty: 180 1RF bupropion HCl 200 mg tablet sustained-release 12 hr 200 mg PO BID Qty: 180 1RF meloxicam 7.5 mg tablet 7.5 mg PO DAILY Qty: 90 0RF lisinopril 20 mg tablet 20 mg PO DAILY Qty: 90 1RF calcium carbonate-vitamin D3 600 mg(1,500mg) -500 unit Tablet Extended Release 24 Hr 1 tablet PO DAILY omeprazole 40 mg capsule,delayed release(DR/EC) 40 mg PO DAILY Qty: 90 1RF amlodipine 5 mg tablet 5 mg PO DAILY Qty: 90 1RF Follow-up/Referrals: Haleigh Schaefer APRN [Primary Care Provider, Family Practice] Stand Alone Forms: Work/School Release IP
[2025-07-06 12:24] VITALS: BP 162/92; PULSE 84; RESP 16; O2SAT 100
[2025-07-06 12:36] LABS: Hematocrit 39.0 % (37.0-47.0); Hemoglobin 12.7 g/dL (12.0-15.0); Immature Granulocyte Percent A 0.4 % (0-0.5); Lymphocytes Absolute Auto 1.18 K/mm3 (0.9-3.2); Mean Corpuscular HGB Conc 32.6 g/dl (32-36); Mean Corpuscular Hemoglobin 29.5 pg (26-34); Mean Corpuscular Volume 90.7 fl (80-100); Nucleated Red Blood Cells Absolute Auto 0.000 K/mm3 (0.0-0.012); Nucleated Red Blood Cells Perc 0.0 % (0.0-0.2); Platelet Count Result 394 k/mm3 (150-375); Red Blood Count 4.30 M/mm3 (4.2-5.4); White Blood Count 8.4 K/mm3 (4.5-10.0)
[2025-07-06 12:41] LABS: BEDSIDEPREGUCG Negative (Negative)
[2025-07-06 12:50] LABS: Add Urine Microscopic? YES; Appearance Urine Clear (Clear); Glucose Urine UA Negative (Negative); Leukocyte Esterase Ur 1+ LEU/UL (Negative); Nitrate Urine Positive (Negative); Non Pathogenic Casts 0-2; Specific Grav Ur 1.017 (1.001-1.035)
[2025-07-06 13:04] LABS: Alanine Aminotransferase 14 U/L (6-35); Albumin Level 4.2 g/dL (3.5-5.1); Alkaline Phosphatase 77 U/L (38-126); Anion Gap 6 mmol/L (4-12); Aspartate Amino Transferase 20 U/L (14-36); Bilirubin,Total 0.5 mg/dL (0.2-1.3); Blood Urea Nitrogen 9 mg/dL (7-17); Calcium 9.0 mg/dL (8.4-10.2); Carbon Dioxide 24 mmol/L (22-30); Chloride 107 mmol/L (98-107); Estimated CRCL calculation 88 ml/min; Estimated Glomerular Filt Rate > 60; Glucose 85 mg/dL (65-110); Potassium 3.6 mmol/L (3.4-5.0); Sodium 137 mmol/L (137-145); Total Protein 7.3 g/dL (6.3-8.2)
[2025-07-06 13:34] LABS: Thyroid Stimulating Hormone 0.363 uIU/mL (0.465-4.680)
--- OUTSIDE RECORDS SUMMARY | 2025-07-06 13:55 | XMS_ITS | Clinical Summary ---
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 Gender Identity Not on file Sexual Orientation Not on file Plan of Treatment Upcoming Encounters Date Type Department Care Team (Late st Contact Info) Description 10/24/2025 1:30 PM CDT Office Visit [facility] [place] [address] [facility] [address] [address] Gianluca Perera MD [address] [facility] [address] [place] [address] Health Maintenance Due Date Last Done Comments DTAP/TDAP/TD VACCINES (1 - Tdap) 1991 HEPATITIS B VACCINES (1 of 3 - 19+ 3-dose series) 10/1991 HPV/Cotest (21-29) 1993 CERVICAL CANCER SCREENING 2002 HPV/Cotest (30-65) 2002 PAP SMEAR 2002 BREAST CANCER SCREENING 2012 COLORECTAL SCREENING 2017 Colorectal Cancer Screening 2017 FIT-DNA Q 3 years 2017 FIT/FOBT Q 1 year 2017 Flex Sig/CT Colonography Q 5 years 2017 ZOSTER VACCINE (1 of 2) 2022 INFLUENZA VACCINE (#1) [address] [place] [address] [facility] CHOICE [id number]
== END 2025-07-06 14:08 | disposition home or self-care (01) ==
PROVIDERS: Emergency Provider Emergency Medicine; PCP Nurse Practitioner Family
DX: N39.0 Urinary tract infection, site not specified (principal); R53.83 Other fatigue; I10 Essential (primary) hypertension; J45.909 Unspecified asthma, uncomplicated; E55.9 Vitamin D deficiency, unspecified; K21.9 Gastro-esophageal reflux disease without esophagitis; F41.9 Anxiety disorder, unspecified; F33.41 Major depressive disorder, recurrent, in partial remission; Z87.891 Personal history of nicotine dependence; Z86.16 Personal history of COVID-19; Z79.899 Other long term (current) drug therapy
CPT/HCPCS: 36415; 80053; 81001; 81025; 84443; 85025; 87086; 87186; 99283

== ENCOUNTER 2025-07-24 07:08 | Outpatient (CLI) | payer OTHER, SELFPAY | END 2025-07-24 07:09 | disposition home or self-care (01) | LOC: ANHLAB 07:09 | PROVIDERS: PCP Nurse Practitioner Family; Visit Provider Nurse Practitioner Family | DX: N39.0 Urinary tract infection, site not specified (principal) | CPT/HCPCS: 87086 ==